=== PATIENT | female | born 1955 | race Caucasian/White ===

== ENCOUNTER 2016-09-15 18:00 | Emergency (ER) | payer OTHER ==
[~2016-09-15] VITALS: Ht 172.7 cm; Wt 181.4 kg
[~2016-09-15 18:00] MED LIST: ALBUTEROL1.25 MG/1 INH/SOL; AMIODARONE HCL200 M1 PO; ATENOLOL25 M1 PO; AUGMENTIN 875-1 EACH PO; CYCLOBENZAPRINE10 M1 PO; DUONEB INH; FEMARA2.5 M1 PO; FUROSEMIDE40 M1 PO; IBUPROFEN800 M1 PO; KETOROLAC TROME10 M1 PO; LISINOPRIL20 M1 PO; MEDROL4 M2 PO; PERCOCET 5-3251 EACH PO; POLYTRIM EYE DR10 ML TOP; PREDNISONE50 M1 PO; SYMBICORT 16010.2 GM INH; SYNTHROID88 MCG PO; ULTRAM50 M1 PO; VENTOLIN HFA18 GM INH; VENTOLIN HFA18 GM PO; XARELTO20 M2 PO
--- NOTE | 2016-09-15 18:54 | ED GENERAL ADULT ---
History of Present Illness General Chief Complaint: General Adult Stated Complaint: SWOLLEN/WEEPING LEGS,SOB Source: patient Exam Limitations: no limitations Vital Signs & Intake/Output Vital Signs & Intake/Output Vital Signs Date Time Temp Pulse Resp B/P B/P Pulse O2 O2 Flow FiO2 Mean Ox Delivery Rate 09/15 2009 98.1 103 22 118/80 95 Room Air 09/15 1814 98.6 128 18 107/69 96 Room Air Allergies Coded Allergies: NO KNOWN ALLERGIES (07/05/13) Triage Note: 60 YO FEMALE TO TRIAGE FOR BILATERAL LOWER EXTREMITITY SWELLING. PT STATES SHE IS ALSO SOB (HX OF ASTHMA). STATES SHE TAKES LASIX DAILY BUT THE SWELLING IN HER LEGS HAVE NOT GONE DOWN. EKG COMPELTED ON ARRIVAL Triage Nurses Notes Reviewed? yes Onset: Gradual Duration: day(s): (FEW) Timing: recent history Injury Environment: home Severity: mild, moderate No Modifying Factors: none Associated Symptoms: cough (SCANT SPUTUM) HPI: 60 year old femael with history of afib on xarelto, s/p chemotherapy for breast cancer (ended 1 year ago) presents with increased swelling inb/l legs, now worse on right. Cough with scant clear sputum. Reports 28 lb weight gain x one month. (DANY MÉNDEZ,TANNER) Reconcile Medications Acetaminophen (Tylenol Extra Strength) 500 MG TABLET 2 TAB PO PRN PAIN ( Reported) Albuterol Sulfate (Proair Hfa) 90 MCG HFA.AER.AD 2 PUF INH AD PRN RESPIRATORY (Reported) Amiodarone HCl 200 MG TABLET 1 TAB PO DAILY DIRECTED (Reported) Atenolol 25 MG TABLET 1 TAB PO DAILY DIRECTED (Reported) Budesonide/Formoterol Fumarate (Symbicort 160-4.5 Mcg Inhaler) 10.2 GM HFA.AER.AD 2 PUF INH BID DIRECTED (Reported) Furosemide 40 MG TABLET 1 TAB PO DAILY DIRECTED (Reported) Letrozole (Femara) 2.5 MG TABLET 1 TAB PO DAILY DIRECTED (Reported) Levothyroxine Sodium (Synthroid) 88 MCG TABLET 1 TAB PO DAILY THYROID ( Reported) Rivaroxaban (Xarelto) 20 MG TABLET 1 TAB PO DAILY DIRECTED (Reported) with food Sertraline HCl 25 MG TABLET 1 TAB PO DAILY MENTAL HEALTH (Reported) (JANET MÉNDEZ,DREW Wise) Past History Travel History Traveled to [place] past 21 day No Medical History Any Pertinent Medical History? 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 No (TANNER MARTINS MD) Review of Systems Review of Systems Constitutional: Reports: see HPI (28 LB WEIGHT GAIN). Denies: chills, fever. EENTM: Reports: no symptoms. Respiratory: Reports: cough, short of breath, sputum production (SCANT CLEAR SPUTUM). Cardiovascular: Reports: peripheral edema. Denies: chest pain. GI: Denies: abdominal pain. Genitourinary: Reports: no symptoms. Musculoskeletal: Reports: no symptoms. Skin: Reports: no symptoms. Neurological/Psychological: Reports: no symptoms. Hematologic/Endocrine: Denies: bruising, bleeding, polyuria, polydipsia. Immunologic/Allergic: Denies: splenectomy. All Other Systems: Reviewed and Negative (DANY MÉNDEZ,TANNER) Physical Exam Physical Exam General Appearance: well developed/nourished, alert, awake, anxious, mild distress, moderate distress, obese Head: atraumatic, normal appearance Eyes: Bilateral: PERRL, EOMI. Ears, Nose, Throat: normal pharynx, hearing grossly normal Neck: normal inspection, supple, full range of motion Respiratory: DIMINISHED BREATH SOUNDS Cardiovascular: irregularly irregular Peripheral Pulses: 2+ radial (R), 2+ radial (L) Gastrointestinal: MORBIDLY OBESE Back: normal inspection, normal range of motion Extremities: swelling (2+ BILATEARLLY R>L) Neurologic/Psych: no motor/sensory deficits, awake, alert, oriented x 3 Skin: RLE EDEMA Core Measures ACS in differential dx? Yes CVA/TIA Diagnosis: No Severe Sepsis Present: No Septic Shock Present: No (TANNER MARTINS MD) Progress Differential Diagnoses I considered the following diagnoses in my evaluation of the patient: [CHF, FLUID OVERLOAD, PNEUMONIA, COPD] Plan of Care: Orders Procedure Date/time Status TROPONIN LEVEL 09/15 1850 Complete PARTIAL THROMBOPLASTIN TIME 09/15 1850 Complete PROTHROMBIN TIME 09/15 1850 Complete COMPREHENSIVE METABOLIC PANEL 09/15 1850 Complete CBC WITHOUT DIFFERENTIAL 09/15 1850 Complete B-TYPE NATRIURETIC PEP (BNP) 09/15 1850 Complete EKG 09/15 1801 Active Laboratory Tests 09/15/161917: Anion Gap 7, Estimated GFR > 60, BUN/Creatinine Ratio 23.8, Glucose 86, Calcium 9.2, Total Bilirubin 0.6, AST 26, ALT 39, Alkaline Phosphatase 62, Troponin I < 0.01, Grn-M-Gvrburwjvmj Pept 1370 H, Total Protein 7.5, Albumin 4.0, Globulin 3.5, Albumin/Globulin Ratio 1.1, PT 12.6 H, INR 1.20 H, APTT 32, CBC w Diff NO MAN DIFF REQ, RBC 5.36, MCV 84.9, MCH 27.4, RDW 17.9 H, MPV 9.1, Gran % 63.1, Lymphocytes % 25.4, Monocytes % 9.2, Eosinophils % 2.1, Basophils % 0.2, Absolute Granulocytes 4.8, Absolute Lymphocytes 1.9, Absolute Monocytes 0.7 H, Absolute Eosinophils 0.2, Absolute Basophils 0, PUBS MCHC 32.3 L Diagnostic Imaging: Viewed by Me: Radiology Read. Discussed w/RAD: Radiology Read. Initial ED EKG: AFIB Prior EKG: unchanged Hand-Off Endorsed To: JANET MÉNDEZ,DREW Wise Endorsed Time: 1915 Pending: labs, Xray (DANY MÉNDEZ,TANNER) CXR Impression: PATIENT: ARE AGUERO PRESENT AGE : 60 PATIENT ACCOUNT NO: [id number] : 55 LOCATION: [facility] ORDERING PHYSICIAN: TANNER MARTINS MD SERVICE DATE: 09/15/16-1850 EXAM TYPE: RAD - XRY -PORTABLE CHEST XRAY EXAMINATION: XR PORTABLE CHEST CLINICAL INFORMATION: Fluid overload COMPARISON: 12/08/2015 TECHNIQUE: Portable frontal view of the chest was obtained. FINDINGS: Right chest wall CT compatible port remains in place. The lungs are well expanded. No consolidation, edema, or effusion. No pneumothorax. The cardiomediastinal silhouette remains prominent. No acute osseous abnormality. IMPRESSION: No acute pulmonary findings. DICTATED BY: SANTOS PETTIT MD DATE/TIME DICTATED:09/15/161926 ATTENDANT [facility]: [facility] DATE/TIME TRANSCRIBED:09/15/161926 CONFIDENTIAL, DO NOT COPY WITHOUT APPROPRIATE AUTHORIZATION. 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 Patient has begun to diurese here in the emergency department with good oxygen saturations on room air. 09/15/2016 9:55:06 PM patient has made a number of trips to the bathroom and appears to be diuresing well. I feel she is stable for outpatient management via Her primary care physician. Plan increase dose of furosemide with potassium supplementation and follow-up with PCP in 48 hours. (JANET MÉNDEZ,DREW Wise) Departure Departure Condition: Stable Referrals: BEST MÉNDEZ,FELTON Rodriguez (PCP/Family) Departure Forms: Customer Survey General Discharge Information (DANY MÉNDEZ,TANNER) Departure Disposition: HOME OR SELF CARE Clinical Impression Primary Impression: Fluid overload Qualifiers: Hypervolemia type: other Qualified Code: E87.79 - Other fluid overload Secondary Impressions: Peripheral edema Additional Instructions: double your dose of furosemide over the next 48 hours. Elevate your legs as much as possible and consider compression stockings. Follow-up with your primary care physician in 48 hours to recheck her potassium level and kidney functions. If you're capable please weigh herself daily and record this for your doctor. Low-salt diet. Return if any concerns or sudden worsening. Please note that there might be incidental findings in your evaluation that are unrelated to the current emergency department visit. Please notify your primary care doctor about this emergency department visit in order to obtain and review all of the testing performed so that these incidental findings can be monitored as needed. If you had an x-ray performed, please understand that some fractures may not be seen on the initial set of x-rays. If your symptoms persist you might need a repeat set of x-rays to check for such a fracture. If you had a laceration evaluated, please understand that foreign bodies such as glass or wood may not be visible to the naked eye or on plain x-rays. If the wound becomes red, swollen, increasingly more painful or if there is any drainage from the wound, please have it reevaluated by a physician for the possibility of a retained foreign body. Thank you for choosing the [facility] Emergency Department for your care. It was a pleasure to serve you today. Drew Akins M.D. [facility] Prescriptions: Current Visit Scripts Potassium Chloride (K-Tab ER) 2 TAB PO DAILY #4 TAB (JANET MÉNDEZ,DREW Wise) Critical Care Note Critical Care Note Critical Care Time: non-applicable (DANY MÉNDEZ,TANNER)
[2016-09-15 19:25] LABS: ABSOLUTE BASOPHIL COUNT 0 /CUMM (0.0-0.2); ABSOLUTE EOSINOPHIL COUNT 0.2 /CUMM (0.0-0.7); ABSOLUTE GRANULOCYTE CT 4.8 /CUMM (1.4-6.5); ABSOLUTE LYMPH COUNT 1.9 /CUMM (1.2-3.4); ABSOLUTE MONOCYTE COUNT 0.7 /CUMM (0.10-0.60); BASOPHIL % 0.2 % (0.0-2.0); EOSINOPHIL % 2.1 % (0-5); GRANULOCYTE % 63.1 % (42.2-75.2); HEMATOCRIT 45.5 % (37-47); MEAN CORPUSCULAR HGB 27.4 PG (27.0-31.0); MEAN CORPUSCULAR HGB CONC 32.3 G/DL (33.0-37.0); MEAN CORPUSCULAR VOLUME 84.9 FL (81.0-99.0); MEAN PLATELET VOLUME 9.1 FL (7.4-10.4); PLATELET COUNT 192 /CUMM (130-400); RBC DISTRIBUTION WIDTH 17.9 % (11.5-14.5); RED BLOOD CELL CT 5.36 /CUMM (4.20-5.40); WHITE BLOOD CELL COUNT 7.6 /CUMM (4.8-10.8)
--- NOTE | 2016-09-15 19:31 | RADIOLOGY REPORT ---
EXAMINATION: XR PORTABLE CHEST CLINICAL INFORMATION: Fluid overload COMPARISON: 12/08/2015 TECHNIQUE: Portable frontal view of the chest was obtained. FINDINGS: Right chest wall CT compatible port remains in place. The lungs are well expanded. No consolidation, edema, or effusion. No pneumothorax. The cardiomediastinal silhouette remains prominent. No acute osseous abnormality. IMPRESSION: No acute pulmonary findings.
[2016-09-15 19:52] LABS: PT 12.6 SEC (9.4-12.5); PTT 32 SEC (25-37)
[2016-09-15] MEDS ORDERED: SERTRALINE HCL25 MG PO (20:19)
[2016-09-15] MEDS ORDERED: PROAIR HFA8.5 GM INH (20:19)
[2016-09-15] MEDS ORDERED: TYLENOL EXTRA500 M2 PO (20:20)
[2016-09-15] MEDS ORDERED: K-TAB ER10 MEQ PO (21:58)
[2016-09-15 22:06] VITALS: BP 136/63
== END 2016-09-15 22:18 ==
LOC: ERH 18:00
PROVIDERS: Emergency Medicine
DX: E87.70 Fluid overload, unspecified (principal); R60.0 Localized edema
CPT/HCPCS: 93005; 93010; 96374; J1940

== ENCOUNTER 2016-11-22 11:55 | Emergency (ER) | payer OTHER ==
[~2016-11-22] VITALS: Ht 172.7 cm; Wt 181.4 kg
[~2016-11-22 11:55] MED LIST changes: +K-TAB ER10 MEQ PO; +PROAIR HFA8.5 GM INH; +SERTRALINE HCL25 MG PO; +TYLENOL EXTRA500 M2 PO
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
[2016-11-22 13:39] LABS: ABSOLUTE BASOPHIL COUNT 0 /CUMM (0.0-0.2); ABSOLUTE EOSINOPHIL COUNT 0.1 /CUMM (0.0-0.7); ABSOLUTE GRANULOCYTE CT 6.1 /CUMM (1.4-6.5); ABSOLUTE LYMPH COUNT 1.6 /CUMM (1.2-3.4); ABSOLUTE MONOCYTE COUNT 0.7 /CUMM (0.10-0.60); BASOPHIL % 0.2 % (0.0-2.0); EOSINOPHIL % 1.7 % (0-5); GRANULOCYTE % 71.9 % (42.2-75.2); HEMATOCRIT 44.5 % (37-47); MEAN CORPUSCULAR HGB CONC 32.3 G/DL (33.0-37.0); MEAN CORPUSCULAR VOLUME 86.4 FL (81.0-99.0); PLATELET COUNT 186 /CUMM (130-400); RBC DISTRIBUTION WIDTH 18.3 % (11.5-14.5); RED BLOOD CELL CT 5.14 /CUMM (4.20-5.40); WHITE BLOOD CELL COUNT 8.5 /CUMM (4.8-10.8)
[2016-11-22 14:31] VITALS: BP 118/78
--- NOTE | 2016-11-22 14:38 | CT SCAN REPORT ---
EXAMINATION: CT HEAD WITHOUT CONTRAST CLINICAL INFORMATION: Rule out bleed, status post head strike. Patient on Eliquis. COMPARISON: A prior head CT from 02/24/2010 is off-line and unavailable for review. TECHNIQUE: Contiguous axial imaging was performed from the skull base to vertex without intravenous administration of contrast. The study is limited due to beam hardening artifacts. DLP: 380 mGy-cm FINDINGS: There is no evidence of acute intracranial hemorrhage or territorial infarction. No abnormal mass effect or midline shift is seen. Cook to white matter differentiation is well preserved. No extra-axial fluid collections are identified. The ventricles are normal in size. There is no abnormal attenuation within the brain parenchyma. The osseous structures are normal. The mastoid air cells are well aerated. Small subcutaneous nodules with speckled calcification in the scalp near the vertex are most indicative for benign pilomatricomas. There is moderate mucosal thickening with fluid levels in the maxillary sinuses. There is a 1.5 cm retention cyst versus polyp in the right frontal sinus. There is partial mucosal opacification of the right ethmoid air cells anteriorly. A small retention cyst is noted along the floor of the right sphenoid sinus. IMPRESSION: Limited study with motion and beam hardening artifacts. Otherwise, no acute intracranial pathology. Moderate fluid levels and mucosal thickening partially visualized in the maxillary sinuses. Additional moderate mucosal thickening in the anterior right frontoethmoid sinuses.
--- NOTE | 2016-11-22 14:57 | RADIOLOGY REPORT ---
EXAMINATION: XR PORTABLE CHEST CLINICAL INFORMATION: Syncope. Evaluate for COPD exacerbation. Fall. Possible loss of consciousness. COMPARISON: Several prior chest x-rays, most recent of which is dated 09/15/2016. TECHNIQUE: Portable AP semierect view of the chest was obtained. FINDINGS: Right jugular Port-A-Cath extends into the deep SVC. Cardiac mediastinal silhouette is enlarged, unchanged. Low lung volumes are seen with accentuation of the central lung markings. No focal consolidation, effusion, pulmonary edema or pneumothorax is seen. Bony structures grossly unremarkable. IMPRESSION: 1. No change in positioning of right jugular Port-A-Cath. 2. Low lung volumes without focal pulmonary process seen.
--- NOTE | 2016-11-22 15:13 | RADIOLOGY REPORT ---
EXAMINATION: XR SHOULDER, LEFT CLINICAL INFORMATION: Left shoulder pain. Rule out fracture. Status post fall. COMPARISON: Chest x-ray 09/15/2016 TECHNIQUE: AP external rotation, Grashey, scapular Y, and axillary views of the left shoulder. FINDINGS: The films are underpenetrated. There is mild degenerative arthrosis of the left acromioclavicular joint. No fracture or dislocation seen. The visualized left lung and ribs are normal. IMPRESSION: No acute osseous abnormality of the left shoulder. Mild degenerative arthrosis of the left acromioclavicular joint.
--- NOTE | 2016-11-22 17:04 | RADIOLOGY REPORT ---
EXAMINATION: XR TOES, LEFT CLINICAL INFORMATION: Pain and ecchymosis after fall. COMPARISON: None TECHNIQUE: 3 views of the left toes were obtained. FINDINGS: There are nondisplaced fractures through the bases of the fourth and fifth proximal phalanges. No obvious intra-articular extension is visible. No additional fractures are clearly seen. There is significant soft tissue swelling of the foot, particularly along the dorsum of foot. There may be a nondisplaced fracture through the head of the fourth metatarsal bone as well. Calcaneal osseous spurring is noted. IMPRESSION: Fractures through the bases of the fourth and fifth proximal phalanges. Questionable subtle, nondisplaced fracture through the head of the fourth metatarsal bone. Significant soft tissue swelling of the foot.
[2016-11-22] MEDS ORDERED: SPIRIVA18 MCG INH (17:11)
[2016-11-22] MEDS ORDERED: AMOXICILLIN875 M1 PO (17:36)
[2016-11-22] MEDS ORDERED: BACTRIM DS TAB1 EACH PO (17:36)
[2016-11-22] MEDS ORDERED: PERCOCET 5-3251 EACH PO (17:36)
== END 2016-11-22 18:25 ==
LOC: ERH 11:55
PROVIDERS: Physician Assistant
DX: S92.511B Displaced fracture of proximal phalanx of right lesser toe(s), initial encounter for open fracture (principal); S91.115A Laceration without foreign body of left lesser toe(s) without damage to nail, initial encounter; R60.9 Edema, unspecified; V48.4XXA Person boarding or alighting a car injured in noncollision transport accident, initial encounter; Y92.9 Unspecified place or not applicable; Y93.9 Activity, unspecified
CPT/HCPCS: 73030-LT; 73660-LT; 90471; 90714; 93005; 93010

== ENCOUNTER 2017-05-31 16:35 | Inpatient (IN) | payer OTHER ==
[~2017-05-31] VITALS: Ht 172.7 cm; Wt 181.4 kg
[~2017-05-31 16:35] MED LIST changes: +AMOXICILLIN875 M1 PO; +BACTRIM DS TAB1 EACH PO; +SPIRIVA18 MCG INH
--- NOTE | 2017-05-31 17:15 | ED INFLUENZA/URI COMPLAINT ---
History of Present Illness General Chief Complaint: Wheezing/Asthma Stated Complaint: "I CANT BREATH" Source: patient, old records Exam Limitations: no limitations Vital Signs & Intake/Output Vital Signs & Intake/Output Vital Signs Date Time Temp Pulse Resp B/P B/P Pulse O2 O2 Flow FiO2 Mean Ox Delivery Rate 05/31 2216 98.4 92 18 121/65 93 Nasal 2.0L Cannula 05/31 1807 97 Nasal 2.0L Cannula 05/31 180 99.7 96 22 119/74 97 Nasal 2.0L Cannula 05/31 1734 92 05/31 1721 95 Nasal 2.0L Cannula 05/31 1644 98.2 92 18 131/85 93 Room Air Allergies Coded Allergies: NO KNOWN ALLERGIES (07/05/13) Reconcile Medications Acetaminophen (Tylenol Extra Strength) 500 MG TABLET 2 TAB PO PRN PAIN ( Reported) Albuterol Sulfate (Proair Hfa) 90 MCG HFA.AER.AD 2 PUF INH AD PRN RESPIRATORY (Reported) Amiodarone (Cordarone) 200 MG TABLET 1 TAB PO DAILY HEART (Reported) Amoxicillin 875 MG TABLET 1 TAB PO BID open fracture Atenolol 25 MG TABLET 1 TAB PO DAILY BP (Reported) Budesonide/Formoterol Fumarate (Symbicort 160-4.5 Mcg Inhaler) 10.2 GM HFA.AER.AD 2 PUF INH BID COPD (Reported) Furosemide 40 MG TABLET 1 TAB PO DAILY DIURETIC (Reported) Letrozole (Femara) 2.5 MG TABLET 1 TAB PO DAILY CANCER (Reported) Levothyroxine Sodium (Synthroid) 88 MCG TABLET 1 TAB PO DAILY THYROID ( Reported) Oxycodone HCl/Acetaminophen (Percocet 5-325 MG Tablet) 5 MG-325 MG TABLET 1 TAB PO TID PRN pain Rivaroxaban (Xarelto) 20 MG TABLET 1 TAB PO DAILY BLOOD THINNER (Reported) with food Sertraline HCl 25 MG TABLET 1 TAB PO DAILY MENTAL HEALTH (Reported) Sulfamethoxazole/Trimethoprim (Bactrim Ds Tablet) 800 MG-160 MG TABLET 1 TAB PO BID open fracture Tiotropium [place] (Spiriva) 18 MCG CAP.W.DEV 1 CAP INH DAILY COPD (Reported) Triage Note: PT FROM HOME C/O SOB X "I DONT KNOW A FEW WEEKS I GUESS" PT STATES THAT FOR A FEW WEEKS PT HAS HAD DIFFICULTY BREATHING, SOB UPON EXERTION. PT IS OBESE AND STATES HER PCP COULD NOT SEE HER, SHE WENT TO A WALK IN " BUT THEY COULDNT DO ANYTHING" PT STATES COUGH X FEW WEEKS WITH SPUTUM THAT IS YELLOW/WHITE. PTS 02 SAT 93% ON RA. PT THEN BEGAN TO SAY "I HAVE A KELLEY, MY BACK HURT, MY MOUTH IS DRY". Triage Nurses Notes Reviewed? yes Onset: Gradual Duration: getting worse Timing: recent history Severity: severe Severity Numbers: 7 HPI: Patient is a 61-year-old female with a past medical history of COPD not on home O2, hypertension, hypothyroidism, morbid obesity, lung cancer in remission currently on hormonal therapy, peripheral lower extremity leg edema currently on Lasix who presents emergency room with a one-day history of shortness of breath cough weakness fatigue body aches back pain headache Patient tried multiple breathing treatments prior to arrival with minimal relief of symptoms was evaluated at urgent care facility and was advised to present to emergency room, nursing staff in triage does note the patient is hypoxic and dyspneic Patient denies any chest pain arm pain jaw pain nausea vomiting It is noted last echocardiogram PER Old records 2013 ejection fracture over 65 (Ezequiel Beckwith) Past History Travel History Traveled to [place] past 21 day No Medical History Any Pertinent Medical History? see below for history Neurological: NONE EENT: NONE Cardiovascular: AFIB, hypertension Respiratory: asthma, COPD Gastrointestinal: NONE Hepatic: NONE Renal: NONE Musculoskeletal: NONE Psychiatric: NONE Endocrine: THYROID Blood Disorders: NONE Cancer(s): breast cancer [employer]/Reproductive: NONE Tetanus Vaccine: 11/22/16 Surgical History Surgical History: non-contributory, N Psychosocial History Who do you live with Family Services at Home None What is your primary language Armenian Tobacco Use: Current Daily Use Daily Tobacco Use Amount/Type: => 5 Cigarettes daily Family History Family History, If Any: BROTHER Atrial fibrillation Stroke FATHER Heart attack Hx Contributory? No (Ezequiel Beckwith) Review of Systems Review of Systems Constitutional: Reports: see HPI, chills, fever. EENTM: Reports: no symptoms. Respiratory: Reports: see HPI, cough, short of breath. Cardiovascular: Reports: see HPI, peripheral edema. GI: Reports: no symptoms. Genitourinary: Reports: no symptoms. Musculoskeletal: Reports: see HPI, joint pain, muscle pain. Skin: Reports: no symptoms. Neurological/Psychological: Reports: see HPI, headache. Hematologic/Endocrine: Reports: no symptoms. Immunologic/Allergic: Reports: no symptoms. All Other Systems: Reviewed and Negative (Ezequiel Beckwith) Physical Exam Physical Exam General Appearance: no apparent distress, obese Head: atraumatic Eyes: Bilateral: normal appearance. Ears, Nose, Throat: normal ENT inspection, moist mucous membrane Neck: normal inspection Respiratory: wheezing, respiratory distress Cardiovascular: tachycardia, irregularly irregular Peripheral Pulses: 2+ radial (R) Gastrointestinal: normal bowel sounds Extremities: pedal edema Neurologic/Psych: awake, alert Skin: warm/dry Core Measures Sepsis Present: No Sepsis Focused Exam Completed? No (Ezequiel Beckwith) Progress Differential Diagnosis: influenza, meningitis, neutropenia, otitis, pneumonia, pharyngitis, sinusitis Plan of Care: Orders Procedure Date/time Status Heart Healthy Diet 06/01 B Active Patient Data 05/31 2137 Active ED Holding Orders 05/31 2135 Active Admit to inpatient 05/31 2135 Active Vital Signs 05/31 2135 Active Code Status 05/31 2135 Active LACTIC ACID 05/31 2020 Complete CTA CHEST-PULMONARY EMBOLISM 05/31 1911 Active ARTERIAL BLOOD GAS (GEN) 05/31 172 Active RAPID VIRAL INFLUENZA A 05/31 172 Complete LOWER RESPIRATORY CULTURE 05/31 172 Active BLOOD CULTURE 05/31 172 Active TROPONIN LEVEL 05/31 172 Complete LACTIC ACID 05/31 172 Complete COMPREHENSIVE METABOLIC PANEL 05/31 1721 Complete CBC WITHOUT DIFFERENTIAL 05/31 172 Complete B-TYPE NATRIURETIC PEP (BNP) 05/31 172 Complete EKG 05/31 172 Active Laboratory Tests 05/31/17 202: Lactic Acid 1.0 05/31/17 1750: Anion Gap 12, Estimated GFR > 60, BUN/Creatinine Ratio 20.0, Glucose 94, Lactic Acid 1.3, Calcium 9.0, Total Bilirubin 0.6, AST 21, ALT 29, Alkaline Phosphatase 58, Troponin I < 0.01, Aiq-C-Awqldxbdoqq Pept 2480 H, Total Protein 6.8, Albumin 3.8, Globulin 3.0, Albumin/Globulin Ratio 1.3, CBC w Diff NO MAN DIFF REQ, RBC 4.82, MCV 86.2, MCH 28.4, MCHC 33.0, RDW 17.8 H, MPV 9.1, Gran % 76.4 H, Lymphocytes % 13.4 L, Monocytes % 9.6 H, Eosinophils % 0.2, Basophils % 0.4 , Absolute Granulocytes 6.3, Absolute Lymphocytes 1.1 L, Absolute Monocytes 0.8 H, Absolute Eosinophils 0, Absolute Basophils 0 Microbiology 05/31 1911 BLOOD: Blood Culture - RECD 05/31 1899 BLOOD: Blood Culture - RECD 05/31 175 NASOPHARYN: Influenza Virus A & B Rapid Smear - COMP 05/31 172 LOWER RESP: Respiratory Culture - ORD 05/31 1720 LOWER RESP: Gram Stain - ORD Differential diagnoses include CHF PE NC Patient was given nebulizer treatments and steroids for concerns of COPD exacerbation and azithromycin for concerns of bronchitis Due to patient's history of cancer or tachycardia and shortness of breath that pulmonary embolism will be ruled out with CT angiogram, Patient was physically unable to fit in the CT scan for evaluation patient also has severe anxiety and distress There is consideration of CHF due to elevated BNP leg edema and shortness of breath she will be admitted to telemetry Upon admission patient looks well no apparent distress Diagnostic Imaging: Viewed by Me: Radiology Read. CXR Impression: no acute abnormality Initial ED EK BPM, MULTIPLE ARTIFACT Comments: PATIENT: RAE AGUERO PRESENT AGE: 61 PATIENT ACCOUNT NO: [id number] : 55 LOCATION: [facility] ORDERING PHYSICIAN: Drew Hyde DO SERVICE DATE: 05/31/17 EXAM TYPE: RAD - XRY-PORTABLE CHEST XRAY EXAMINATION: XR PORTABLE CHEST CLINICAL INFORMATION: Cough COMPARISON: Multiple previous chest x-rays with the most recent chest x-ray of 11/22/2016. TECHNIQUE: Portable frontal view of the chest was obtained. FINDINGS: Somewhat limited evaluation by technique and patient's body habitus. A right-sided CT compatible Port-A-Cath is in place with the tip terminating over the expected location of the superior cavoatrial junction. No evidence of pneumothorax. The lungs are mildly hypoexpanded. No definite evidence of focal consolidation. No pulmonary edema or significant pleural effusions. The cardiomediastinal silhouette is unchanged. A square radiopaque density projecting over the lower thoracic spine in the midline is likely artifactual. Recommend clinical correlation. IMPRESSION: No convincing radiographic evidence of pneumonia. No acute pulmonary process. DICTATED BY: Oma Cruz MD DATE/TIME DICTATED:05/31/171802 SCHOOL SECRETARY:DEYSI DATE/TIME TRANSCRIBED:05/31/171802 CONFIDENTIAL, DO NOT COPY WITHOUT APPROPRIATE AUTHORIZATION. (Ezequiel Beckwith) Departure Departure Disposition: STILL A PATIENT Condition: Stable Clinical Impression Primary Impression: CHF (congestive heart failure) Secondary Impressions: Bronchitis, COPD exacerbation Referrals: Grimes Mason MÉNDEZ (PCP/Family) Departure Forms: Customer Survey General Discharge Information Admission Note Spoke With: Harmony Esparza MD Documentation of Exam: Documentation of any treatments & extenuating circumstances including Concerns Regarding Discharge (functional status, medication knowledge or non-compliance, living conditions, etc.) that warrant an admission rather than observation: [ Patient requires telemetry admission for concerns of CHF patient requires IV steroids, nebulizer treatments, pulmonary consultation cardiology consultation repeat labs repeat cardiac enzymes repeat EKG echocardiogram] (Ezequiel Beckwith) PA/WEED CONTROLLER Co-Sign Statement Statement: ED Attending supervision documentation- [X] I saw and evaluated the patient. I have also reviewed all the pertinent lab results and diagnostic results. I agree with the findings and the plan of care as documented in the PA's/WEED CONTROLLER's documentation. [X] I have reviewed the ED Record and agree with the PA's/WEED CONTROLLER's documentation. [] Additions or exceptions (if any) to the PAs/WEED CONTROLLER's note and plan are summarized below: [Patient to be admitted to telemetry for dyspnea. COPD exacerbation. Nebulizers, IV steroids, IV antibiotics, pulmonary consultation] (Evelio MÉNDEZ,Juan Up) [X] I have reviewed the ED Record and agree with the PA's/WEED CONTROLLER's documentation. [] Additions or exceptions (if any) to the PAs/WEED CONTROLLER's note and plan are summarized below: [Patient to be admitted to telemetry for dyspnea. COPD exacerbation. Nebulizers, IV steroids, IV antibiotics, pulmonary consultation] (Juan Fraser MD)
[2017-05-31 18:03] LABS: ABSOLUTE BASOPHIL COUNT 0 /CUMM (0.0-0.2); ABSOLUTE EOSINOPHIL COUNT 0 /CUMM (0.0-0.7); ABSOLUTE GRANULOCYTE CT 6.3 /CUMM (1.4-6.5); ABSOLUTE LYMPH COUNT 1.1 /CUMM (1.2-3.4); ABSOLUTE MONOCYTE COUNT 0.8 /CUMM (0.10-0.60); BASOPHIL % 0.4 % (0.0-2.0); EOSINOPHIL % 0.2 % (0-5); GRANULOCYTE % 76.4 % (42.2-75.2); HEMATOCRIT 41.6 % (37-47); MEAN CORPUSCULAR HGB 28.4 PG (27.0-31.0); MEAN CORPUSCULAR VOLUME 86.2 FL (81.0-99.0); MEAN PLATELET VOLUME 9.1 FL (7.4-10.4); PLATELET COUNT 186 /CUMM (130-400); RBC DISTRIBUTION WIDTH 17.8 % (11.5-14.5); RED BLOOD CELL CT 4.82 /CUMM (4.20-5.40); WHITE BLOOD CELL COUNT 8.3 /CUMM (4.8-10.8)
--- NOTE | 2017-05-31 18:08 | RADIOLOGY REPORT ---
EXAMINATION: XR PORTABLE CHEST CLINICAL INFORMATION: Cough COMPARISON: Multiple previous chest x-rays with the most recent chest x-ray of 11/22/2016. TECHNIQUE: Portable frontal view of the chest was obtained. FINDINGS: Somewhat limited evaluation by technique and patient's body habitus. A right-sided CT compatible Port-A-Cath is in place with the tip terminating over the expected location of the superior cavoatrial junction. No evidence of pneumothorax. The lungs are mildly hypoexpanded. No definite evidence of focal consolidation. No pulmonary edema or significant pleural effusions. The cardiomediastinal silhouette is unchanged. A square radiopaque density projecting over the lower thoracic spine in the midline is likely artifactual. Recommend clinical correlation. IMPRESSION: No convincing radiographic evidence of pneumonia. No acute pulmonary process.
--- NOTE | 2017-05-31 22:35 | History & Physical ---
Juan Avalos MD 05/31/17 1294: General Information and HPI MD Statement: I have seen and personally examined RAE TRUJILLO and documented this H&P. The patient is a 61 year old F who presented with a patient stated chief complaint of [cough, SOB]. Source of Information: patient, old records Exam Limitations: no limitations History of Present Illness: Patient is a 61-year-old morbidly obese female with a PMH significant for COPD, HTN, hypothyroidism, breast cancer being treated with letrozole, A. fib on Xarelto who presents complaining of cough, shortness of breath, weakness. Patient states that for the past 3 weeks she has had a nonproductive cough and worsening shortness of breath. During this time she is also had fever and chills. She states that for the past day she has been so weak and short of breath she could not get out of bed. She has had increased leg swelling from baseline, she is on Lasix currently. She was evaluated by an urgent care who gave her breathing treatment recommended that she come to the ED. She has one sick contact her at home was sick with URI symptoms recently. She denies any chest pain, palpitations, nausea, vomiting, dizziness, lightheadedness. Allergies/Medications Allergies: Coded Allergies: NO KNOWN ALLERGIES (07/05/13) Home Med list Acetaminophen (Tylenol Extra Strength) 500 MG TABLET 2 TAB PO PRN PAIN ( Reported) Albuterol Sulfate (Proair Hfa) 90 MCG HFA.AER.AD 2 PUF INH AD PRN RESPIRATORY (Reported) Amiodarone (Cordarone) 200 MG TABLET 1 TAB PO DAILY HEART (Reported) Amoxicillin 875 MG TABLET 1 TAB PO BID open fracture Atenolol 25 MG TABLET 1 TAB PO DAILY BP (Reported) Budesonide/Formoterol Fumarate (Symbicort 160-4.5 Mcg Inhaler) 10.2 GM HFA.AER.AD 2 PUF INH BID COPD (Reported) Furosemide 40 MG TABLET 1 TAB PO DAILY DIURETIC (Reported) Letrozole (Femara) 2.5 MG TABLET 1 TAB PO DAILY CANCER (Reported) Levothyroxine Sodium (Synthroid) 88 MCG TABLET 1 TAB PO DAILY THYROID ( Reported) Oxycodone HCl/Acetaminophen (Percocet 5-325 MG Tablet) 5 MG-325 MG TABLET 1 TAB PO TID PRN pain Rivaroxaban (Xarelto) 20 MG TABLET 1 TAB PO DAILY BLOOD THINNER (Reported) with food Sertraline HCl 25 MG TABLET 1 TAB PO DAILY MENTAL HEALTH (Reported) Sulfamethoxazole/Trimethoprim (Bactrim Ds Tablet) 800 MG-160 MG TABLET 1 TAB PO BID open fracture Tiotropium [place] (Spiriva) 18 MCG CAP.W.DEV 1 CAP INH DAILY COPD (Reported) Past History Travel History Traveled to [place] past 21 day No Medical History Neurological: NONE EENT: NONE Cardiovascular: AFIB, hypertension Respiratory: asthma, COPD Gastrointestinal: NONE Hepatic: NONE Renal: NONE Musculoskeletal: NONE Psychiatric: NONE Endocrine: THYROID Blood Disorders: NONE Cancer(s): 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 spouse, child Services at Home: None Primary Language: Yakut Smoking Status: Current Everyday Smoker (30+ pack year hx) ETOH Use: denies use Illicit Drug Use: denies illicit drug use Review of Systems Review of Systems Constitutional: Reports: chills, fever, malaise, weakness. Denies: diaphoresis, unexplained weight loss. EENTM: Reports: nasal congestion. Denies: blurred vision, double vision, visual changes, nasal pain. Cardiovascular: Reports: orthopena (chronic), peripheral edema. Denies: chest pain, palpitations, syncope. Respiratory: Reports: cough, short of breath, wheezing. Denies: sputum production. GI: Denies: abdominal pain, diarrhea, melena, nausea, bloody stool, vomiting. Genitourinary: Reports: no symptoms. Musculoskeletal: Reports: no symptoms. Skin: Reports: no symptoms. Neurological/Psychological: Reports: no symptoms. Exam & Diagnostic Data Last 24 Hrs of Vital Signs/I&O Vital Signs Date Time Temp Pulse Resp B/P B/P Pulse O2 O2 Flow FiO2 Mean Ox Delivery Rate 05/31 2217 98.4 92 18 121/65 93 Nasal 2.0L Cannula 05/31 1807 97 Nasal 2.0L Cannula 05/31 180 99.7 96 22 119/74 97 Nasal 2.0L Cannula 05/31 1734 92 05/31 1721 95 Nasal 2.0L Cannula 05/31 1644 98.2 92 18 131/85 93 Room Air Intake & Output 06/01 0800 06/01 0000 05/31 1600 Intake Total 0 Output Total 0 Balance 0 Intake, Oral 0 Output, Urine 0 Patient 420 lb Weight Weight Standing Scale Measurement Method Physical Exam General Appearance Alert, Oriented X3, Cooperative, No Acute Distress Skin Temp/Moisture Exam: Warm/Dry HEENT Atraumatic, PERRLA, EOMI, dry mucous membranes Neck Supple, No JVD, No thryomegaly, +2 Carotid Pulse wo Bruit Cardiovascular Normal S1, Normal S2, irregularly irregular rhythm, tachycardic, HR 100s Lungs diminished breath sounds, diffuse rhonchi, scant wheezing Abdomen Soft, No Tenderness, obese Neurological Normal Speech, Strength at 5/5 X4 Ext, Normal Tone, Sensation Intact, Cranial Nerves 3-12 NL Extremities No Clubbing, No Cyanosis, 2-3+ pitting edema of the LEs, R>L Vascular Pulses Symmetrical Sepsis Peripheral Pulse Location: Radial Sepsis Peripheral Pulse Exam: Normal Sepsis Cap Refill Exam: <2 Sec Last 24 Hrs of Labs/Sukumar: Laboratory Tests 06/01/17 0251: Troponin I < 0.01 05/31/172020: Lactic Acid 1.0 05/31/171749: Anion Gap 12, Estimated GFR > 60, BUN/Creatinine Ratio 20.0, Glucose 94, Lactic Acid 1.3, Calcium 9.0, Total Bilirubin 0.6, AST 21, ALT 29, Alkaline Phosphatase 58, Troponin I < 0.01, Nio-H-Yslufnoyjqy Pept 2480 H, Total Protein 6.8, Albumin 3.8, Globulin 3.0, Albumin/Globulin Ratio 1.3, CBC w Diff NO MAN DIFF REQ, RBC 4.82, MCV 86.2, MCH 28.4, MCHC 33.0, RDW 17.8 H, MPV 9.1, Gran % 76.4 H, Lymphocytes % 13.4 L, Monocytes % 9.6 H, Eosinophils % 0.2, Basophils % 0.4 , Absolute Granulocytes 6.3, Absolute Lymphocytes 1.1 L, Absolute Monocytes 0.8 H, Absolute Eosinophils 0, Absolute Basophils 0 Microbiology 05/31 1911 BLOOD: Blood Culture - RECD 05/31 1899 BLOOD: Blood Culture - RECD 05/31 1757 NASOPHARYN: Influenza Virus A & B Rapid Smear - COMP 05/31 172 LOWER RESP: Respiratory Culture - ORD 05/31 172 LOWER RESP: Gram Stain - ORD Diagnostic Data EKG Results A fib, HR 130, QTc 492 CXR Results No convincing radiographic evidence of pneumonia. No acute pulmonary process. Assessment/Plan Assessment: Patient is a 61-year-old morbidly obese female with a PMH significant for COPD not on home O2, HTN, hypothyroidism, breast cancer being treated with letrozole, A. fib on Xarelto who presents complaining of cough, shortness of breath, weakness and worsening leg swelling. CXR is unremarkable, proBNP is elevated above baseline ,she has scant wheezing on exam and although her d-dimer is elevated she is on chronic anticoagulation for her A. fib. VS on admission: T 98.2, pulse 92, RR 18, BP 131/85, pulse ox 93% on 2 L nasal cannula Labs on admission: ProBNP 2480 (elevated from baseline), troponin negative 2 On the ED patient received IV Lasix, IV steroids, breathing treatment and states this improved her shortness of breath. She was put on 2 L O2 nasal cannula. Problem list #COPD exacerbation #Possible CHF exacerbation #History of A. fib, breast cancer, hypothyroidism, hypertension Plan -Admit to telemetry -Continuous telemetry monitoring -We will DC his troponin EKG -IV Solu-Medrol 40 mg twice a day, Lasix IV 20 mg daily, Mucinex, azithromycin -TRC/nebs -Echocardiogram - Cardiology consult with patient's small piece cutter, Dr. Sabino beckwith -Pulmonology consult in the a.m. -Weaning off O2 as tolerated -Patient's oncologist Dr. Lionel Harrison has been made aware of this admission -continue home medications: xarelto, letrozole, atenolol, amiodarone, levothyroxine -Heart healthy diet -DVT prophylaxis: Xarelto and ALPS -CODE STATUS: Full code As Ranked By This Provider Problem List: 1. CHF (congestive heart failure) 2. COPD exacerbation Core Measures/Misc (01/10) Acute Coronary Syndrome ACS Diagnosis: No Congestive Heart Failure Congestive Heart Failure Diagnosis Yes Last Known EF % 65 Cerebrovascular Accident CVA/TIA Diagnosis: No VTE (View Protocol) VTE Risk Factors Smoker No Mechanical VTE Prophylaxis d/t N/A MechProphylax Ordered No VTE Pharm Prophylaxis d/t NA PharmProphylax ordered Sepsis (View protocol) Sepsis Present: No Ajay Lake MD 06/01/17 0648: Resident Review Statement Resident Statement: examined this patient, discussed with internet network specialist Other Findings: H Ms Trujillo is a 61 year old femal with past medical history of hypertension, COPD, hypothyroidism, breast cancer, atrial fibrillation (on Xarelto), who presented to the emergency department of weakness, shortness breath, cough. Patient states that she has developed a cough which is nonproductive in nature. Prior to coming in the patient stated that she was to the emergency care where after breathing treatment was recommended that she should come to the emergency department. Patient states she was recently exposed to was sick with symptoms of a URI prior to coming in. Also endorses backache likely chronic in nature. R Review of systems patient denies any fever, chills, nausea, vomiting. She denies any chest pain or chest discomfort. She denies any dysuria frequency hematuria or discharge. Patient endorses occasional palpitations and increased leg swelling. E Family present at bedside. General Appearance Alert, Oriented X3, Cooperative, No Acute Distress Skin Temp/Moisture Exam: Warm/Dry HEENT Atraumatic, PERRLA, EOMI, dry mucous membranes Neck Supple, No JVD, No thryomegaly, +2 Carotid Pulse wo Bruit Cardiovascular Normal S1, Normal S2, irregularly irregular rhythm, tachycardic, Lungs diminished breath sounds, diffuse rhonchi, scant wheezing Abdomen Soft, No Tenderness, obese Neurological Normal Speech, Strength at 5/5 X4 Ext, Normal Tone, Sensation Intact, Cranial Nerves 3-12 NL Extremities No Clubbing, No Cyanosis, 3+ pitting edema of the LEs, R>L L WBC 8.3. H&H 13.7 41.6. Platelets 186. ProBNP 2480. Sodium 144. Potassium 4.5. BUN 16. Creatinine 0.8. I SERVICE DATE: 05/31/17 EXAM TYPE: RAD - XRY-PORTABLE CHEST XRAY IMPRESSION: No convincing radiographic evidence of pneumonia. No acute pulmonary process. EKG: A fib, HR 130, QTc 492 A/P Ms Trujillo is a 61 year old femal with past medical history of hypertension, COPD, hypothyroidism, breast cancer, atrial fibrillation (on Xarelto), who presented to the emergency department of weakness, shortness breath, cough. Her shortness of breath likely been caused by COPD exacerbation. #COPD exacerbation, likely due to recent URI #Questionable CHF exacerbation #History of hypothyroidism #History of atrial fibrillation #History of hypertension Admit to telemetry service. Continue IV Solu-Medrol 40 mg twice day. Lasix 20 mg daily. Continue Azithromycin TRC Nebs Monitor ins and outs. Monitor daily weights. Monitor troponins and EKG. Will inform oncologist Dr Harrison Consult Cardiology in Am. Consult Pulmonology in AM. Continue Home medication. DVT prophylaxis xarelto Patient is a full code. Harmony Esparza 06/01/17 0944: Attending MD Review Statement Attending Statement Attending MD Statement: examined this patient, discuss w/resident/PA/SIGHT MOUNTER, agreed w/resident/PA/SIGHT MOUNTER, reviewed EMR data (avail), reviewed images, amended to note Attending Assessment/Plan: CC: Cough and shortness of breath PMH: A. fib, HTN, breast cancer left side, morbid obesity, COPD, hypothyroidism, right Port-A-Cath Patient came to ER for worsening of nonproductive cough. Patient started to notice symptoms 3 weeks back which gradually worsened, she is not been able to sleep because of cough, endorses shortness of breath-most dyspnea on exertion, had low-grade fever and chills at home, she has chronic orthopnea but lately she has noticed increased leg swelling is. One of the lesions started beeping few days back now more crusted other than the symptoms patient denies any nausea vomiting, sick contacts, chest pain, chest tightness, palpitations, presyncopal symptoms. Vitals: BP max 99.7, pulse 96, RR 22, blood pressure 119/74, saturating 97% on 2 L On exam: A O 3, cooperative, morbidly obese, mild respiratory distress, neck supple, JVD could not be appreciated, no lymphadenopathy, mucosa dry, no focal neurological deficit, significant leg edema, chronic venous stasis changes, crusted superficial lesion, no evidence of infection CVS: S1-S2, RRR. RS: Bilateral diffuse wheezing, minimum crackles Abdomen: Soft, NT, ND, bowel sounds present. Labs: WBC 8.3, hemoglobin 13.7, hematocrit 41.6, platelets 186, neutrophils 76%, sodium 144, potassium 4.5, chloride 103, bicarbonate 30, BUN 16, creatinine 0.8, glucose 94, calcium 9.0, lactate 1.3, LFT unremarkable, proBNP 2480, troponin less than 0.01, influenza negative CXR:No convincing radiographic evidence of pneumonia. No acute pulmonary process. ECG: No acute changes Assessment and plan 61-year-old female with multiple comorbidities presented in ER for gradually worsening nonproductive cough, shortness of breath and dyspnea on exertion, has mild fever or chills at home and increased leg swellings. Her symptoms appear to be combination of COPD and heart failure given that she has wheezing, elevated proBNP, mild crackles, leg edema. Less likely DVT or PE given patient is anticoagulated with Xarelto. + COPD exacerbation + Suspected heart failure + History of A. fib, HTN, breast cancer left side, morbid obesity, COPD, hypothyroidism, right Port-A-Cath - Admit to telemetry - Continuous telemetry monitoring - Strict I's and O's - Daily weights - IV Lasix 20 mg twice a day - TRC and nebulization - IV methylprednisolone 40 mg twice a day - IV azithromycin - By mouth Mucinex scheduled - 2-D echocardiogram in a.m. - Cardiology consult - Pulmonology consult - Continue all her home medication except change Lasix to IV - Continue Xeralto
[2017-06-01 06:36] LABS: ABSOLUTE BASOPHIL COUNT 0 /CUMM (0.0-0.2); ABSOLUTE EOSINOPHIL COUNT 0 /CUMM (0.0-0.7); ABSOLUTE LYMPH COUNT 0.8 /CUMM (1.2-3.4); ABSOLUTE MONOCYTE COUNT 0.1 /CUMM (0.10-0.60); BASOPHIL % 0.1 % (0.0-2.0); EOSINOPHIL % 0 % (0-5); GRANULOCYTE % 81.8 % (42.2-75.2); MEAN CORPUSCULAR HGB CONC 32.3 G/DL (33.0-37.0); MEAN CORPUSCULAR VOLUME 86.6 FL (81.0-99.0); MEAN PLATELET VOLUME 9.7 FL (7.4-10.4); PLATELET COUNT 182 /CUMM (130-400); RBC DISTRIBUTION WIDTH 17.6 % (11.5-14.5); RED BLOOD CELL CT 4.85 /CUMM (4.20-5.40); WHITE BLOOD CELL COUNT 4.9 /CUMM (4.8-10.8)
--- NOTE | 2017-06-01 07:36 | PN- Housestaff ---
See Addendum Subjective Follow-up For: CHF Exacerbation COPD Exacerbation Subjective: Patient was seen and examined today. Patient states she continues to feel SOB especially when she is walking to the restroom. Patient states she has a productive cough and is bringing up a small amount of yellow phlegm. Denies hemoptysis. Patient denies chest pain or palpitations. Patient notes feeling dizzy and lightheaded occasionally. Notes swelling in legs bilaterally. Denies chest pain or palpitations. +orthopena. No PND. Patient notes her was recently sick with a cold. Patient is not on oxygen at home. Patient smokes 5 cigarettes per day down from half a pack. Is not currently having any cravings. Review of Systems Constitutional: Reports: chills, fever, weakness. Cardiovascular: Reports: edema, orthopena. Denies: chest pain, palpitations, syncope. Respiratory: Reports: cough, orthopnea, short of breath, sputum production. Denies: hemoptysis. Gastrointestinal: Reports: no symptoms. Genitourinary: Reports: no symptoms. Musculoskeletal: Reports: back pain. Skin: Reports: no symptoms. Neurological/Psychological: Reports: no symptoms. Objective Last 24 Hrs of Vital Signs/I&O Vital Signs Date Time Temp Pulse Resp B/P B/P Pulse O2 O2 Flow FiO2 Mean Ox Delivery Rate 06/01 0648 97.9 84 22 119/56 94 Nasal 2.0L Cannula 06/01 0419 98.0 94 22 124/66 92 Room Air 05/31 2217 98.4 92 18 121/65 93 Nasal 2.0L Cannula 05/31 1807 97 Nasal 2.0L Cannula 05/31 1806 99.7 96 22 119/74 97 Nasal 2.0L Cannula 05/31 1734 92 05/31 1721 95 Nasal 2.0L Cannula 05/31 1644 98.2 92 18 131/85 93 Room Air Intake & Output 06/01 1600 06/01 0800 06/01 0000 Intake Total 0 Output Total 0 Balance 0 Intake, Oral 0 Output, Urine 0 Patient 420 lb Weight Weight Standing Scale Measurement Method Physical Exam General Appearance: Alert, Oriented X3, Cooperative, No Acute Distress Skin Temp/Moisture Exam: Warm/Dry HEENT: Atraumatic, PERRLA, EOMI, Mucous Membr. moist/pink Cardiovascular: Normal S1, Normal S2, irregular rate Lungs: difficult to hear due to large body habitus, scatted scant wheezing bilaterally Abdomen: Normal Bowel Sounds, Soft, No Tenderness Extremities: No Clubbing, No Cyanosis, No Tenderness/Swelling, bilateral pitting edema, mild erythema, pulses palpable bilaterally Current Medications: Current Medications Sig/Eduardo Start time Last Medication Dose Route Stop Time Status Admin Albuterol Sulfate 2 PUF Q4P PRN 05/315 AC INH Albuterol Sulfate 3 ML ONCE ONE 05/31 1729 DC 05/31 INH 05/31 1730 172 Amiodarone HCl 200 MG DAILY 06/01 1000 AC PO Atenolol 25 MG DAILY 06/01 1000 AC PO Azithromycin 500 MG DAILY 06/01 999 AC Dextrose/Water 250 ML IV Azithromycin 500 MG ONCE ONE 05/31 1729 DC 05/31 Dextrose/Water 250 ML IV 05/31 1828 1950 Budesonide/ 2 PUF BID 06/01 999 AC Formoterol Fumarate INH Furosemide 40 MG DAILY 06/01 999 CAN PO Furosemide 20 MG 7:30 AM, & 4:30 PM 06/01 729 AC 06/01 IV 0732 Furosemide 0 .STK-MED ONE 05/31 2316 DC IV Furosemide 40 MG ONCE ONE 05/31 2199 DC 05/31 IV PUSH 05/31 2200 2325 Guaifenesin 600 MG Q12 06/01 1000 AC PO Letrozole 2.5 MG DAILY 06/01 999 AC PO Levothyroxine Sodium 0.088 MG DAILY AC 06/01 0700 AC 06/01 PO 0732 Methylprednisolone 40 MG Q12 06/01 1000 AC IV Methylprednisolone 0 .STK-MED ONE 05/31 1819 DC .ROUTE Methylprednisolone 125 MG ONCE ONE 05/31 1729 DC 05/31 IV 05/31 1730 182 Rivaroxaban 20 MG DAILY 06/01 1000 AC PO Sertraline HCl 25 MG DAILY 06/01 1000 AC PO Tiotropium [place] 1 PUF DAILY 06/01 1000 AC INH Last 24 Hrs of Lab/Sukumar Results Last 24 Hrs of Labs/Mics: Laboratory Tests 06/01/17 0543: Anion Gap 14, Estimated GFR > 60, BUN/Creatinine Ratio 21.3, CBC w Diff NO MAN DIFF REQ, RBC 4.85, MCV 86.6, MCH 28.0, MCHC 32.3 L, RDW 17.6 H, MPV 9.7, Gran % 81.8 H, Lymphocytes % 16.3 L, Monocytes % 1.8, Eosinophils % 0, Basophils % 0.1, Absolute Granulocytes 4.0, Absolute Lymphocytes 0.8 L, Absolute Monocytes 0.1, Absolute Eosinophils 0, Absolute Basophils 0 06/01/17 0251: Troponin I < 0.01 05/31/172020: Lactic Acid 1.0 05/31/171749: Anion Gap 12, Estimated GFR > 60, BUN/Creatinine Ratio 20.0, Glucose 94, Lactic Acid 1.3, Calcium 9.0, Total Bilirubin 0.6, AST 21, ALT 29, Alkaline Phosphatase 58, Troponin I < 0.01, Jfb-X-Rkwgzefwsqg Pept 2480 H, Total Protein 6.8, Albumin 3.8, Globulin 3.0, Albumin/Globulin Ratio 1.3, CBC w Diff NO MAN DIFF REQ, RBC 4.82, MCV 86.2, MCH 28.4, MCHC 33.0, RDW 17.8 H, MPV 9.1, Gran % 76.4 H, Lymphocytes % 13.4 L, Monocytes % 9.6 H, Eosinophils % 0.2, Basophils % 0.4 , Absolute Granulocytes 6.3, Absolute Lymphocytes 1.1 L, Absolute Monocytes 0.8 H, Absolute Eosinophils 0, Absolute Basophils 0 Microbiology 05/31 1911 BLOOD: Blood Culture - RECD 05/31 1899 BLOOD: Blood Culture - RECD 05/31 175 NASOPHARYN: Influenza Virus A & B Rapid Smear - COMP 05/31 172 LOWER RESP: Respiratory Culture - ORD 05/31 1720 LOWER RESP: Gram Stain - ORD Assessment/Plan Assessment: Patient is a morbidly obese 61 y/o female with PMH signficant for COPD, HTN, Hypothyroidism, breast cancer currently on letrozole with a right Port-A-Cath, Atrial fibrillation on Xarelto presenting with chief complaint of dyspnea at rest and on exertion, productive cough, fever and chills and worsening bilateral lower extremity swelling. On admission patient was noted to have bilateral lower extremity edema, wheezing heard on ausculation, requiring 2L NC oxygen saturating in the lows 90s and an elevated proBNP (double of baseline). Patient's CXR was negative for acute findings. Patient's EKG showed atrial fibrillation. Trops were negative. Patient had an elevated d-dimer. Patient in the ED received IV Lasix, IV steroids and supplemental oxygen with improvement in her breathing and shortness of breath. Patient today continued to improve with the current management of her COPD and CHF exacerbation. Pulmonology was consulted. Sputum cultures ordered. Patient to continue TRC, IV steroids and IV lasix at this time. Patient was noted to have signs and symptoms consistent with sleep apnea. 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 Will require outpatient follow up. Problem list 1. COPD exacerbation 2. Possible CHF exacerbation 3. History of A. fib, breast cancer with Right Port-A-Cath, hypothyroidism, hypertension 4. Likely DIONNE Plan -Admit to telemetry -Continuous telemetry monitoring -Continue IV Solu-Medrol 40 mg twice a day -Continue Lasix IV 20 mg daily -Continue mucinex -Continue azithromycin -TRC/nebs -Echo pending -Cardiology and pulmonology on board. Appreciate recommendations -Wean off O2 as tolerated -Patient's oncologist Dr. Lionel Harrison has been made aware of this admission -continue home medications: xarelto, letrozole, atenolol, amiodarone, levothyroxine Diet: Heart healthy diet DVT prophylaxis: Xarelto and ALPS Code: Full code Dispo: upon discharge patient should follow up with pulmonology for sleep study and PFTs Problem List: 1. CHF (congestive heart failure) 2. COPD exacerbation Pain Ratin Pain Location: n/a Pain Goal: Remain pain free Pain Plan: n/a Tomorrow's Labs & Rationales: BEP - on lasix
--- NOTE | 2017-06-01 08:54 | PN- Student ---
Subjective Subjective: Bruce Dificulty Breathing Patient is a 61 year old female with a past medical history of COPD,hypertention ,hypothyroidism,morbid obesity,lung canger in remission currently on hormonal therapy,AFibb,Pheripheral lower leg edema currently on l
--- NOTE | 2017-06-01 09:45 | Admission Certification ---
Admission Certification Certification Statement - As attending physician, I certify that at the time of - admission, based on clinical presentation, severity of - symptoms, need for further diagnostic testing and - therapeutic interventions, and risk of adverse outcomes - without in-hospital treatment, in my clinical assessment, - this patient requires an acute hospital stay for a minimum - of two nights or longer. I have also considered psychsocial - factors such as support system, advanced age, financial - issues, cognitive issues, and failed out-patient treatments, - past re-admission history, safety of patient, and lack of - compliance as applicable. Specific rationale supporting this admission is: COPD exacerbation, suspected heart failure
--- NOTE | 2017-06-01 14:59 | Cons- Pulmonary ---
General Information and HPI Consulting Request Date of Consult: 06/01/17 Requested By: Ryder Reason for Consult: Exacerbation of COPD hypoxic respiratory failure History of Present Illness: Patient is a 61-year-old morbidly obese woman actively smoking admitted with increasing shortness of breath cough wheezing and worsening lower extremity edema. She has smoked for the past 41 years and continues to smoke approximately half pack per day. She's had increasing cough sputum production of the past several weeks with increasing shortness of breath wheezing and lower extremity edema. She developed a draining right lower extremity ulcer approximately a week ago. She denies having had pulmonary function testing. She does have excessive daytime somnolence and snoring. Cardiac ultrasound several years ago showed evidence of pulmonary hypertension. Allergies/Medications Allergies: Coded Allergies: NO KNOWN ALLERGIES (07/05/13) Home Med List: Acetaminophen (Tylenol Extra Strength) 500 MG TABLET 2 TAB PO PRN PAIN ( Reported) Albuterol Sulfate (Proair Hfa) 90 MCG HFA.AER.AD 2 PUF INH AD PRN RESPIRATORY (Reported) Amiodarone (Cordarone) 200 MG TABLET 1 TAB PO DAILY HEART (Reported) Amoxicillin 875 MG TABLET 1 TAB PO BID open fracture Atenolol 25 MG TABLET 1 TAB PO DAILY BP (Reported) Budesonide/Formoterol Fumarate (Symbicort 160-4.5 Mcg Inhaler) 10.2 GM HFA.AER.AD 2 PUF INH BID COPD (Reported) Furosemide 40 MG TABLET 1 TAB PO DAILY DIURETIC (Reported) Letrozole (Femara) 2.5 MG TABLET 1 TAB PO DAILY CANCER (Reported) Levothyroxine Sodium (Synthroid) 88 MCG TABLET 1 TAB PO DAILY THYROID ( Reported) Oxycodone HCl/Acetaminophen (Percocet 5-325 MG Tablet) 5 MG-325 MG TABLET 1 TAB PO TID PRN pain Rivaroxaban (Xarelto) 20 MG TABLET 1 TAB PO DAILY BLOOD THINNER (Reported) with food Sertraline HCl 25 MG TABLET 1 TAB PO DAILY MENTAL HEALTH (Reported) Sulfamethoxazole/Trimethoprim (Bactrim Ds Tablet) 800 MG-160 MG TABLET 1 TAB PO BID open fracture Tiotropium Dietrich (Spiriva) 18 MCG CAP.W.DEV 1 CAP INH DAILY COPD (Reported) Review of Systems Review of Systems Constitutional: Denies: chills, fever. Cardiovascular: Reports: peripheral edema. Denies: chest pain. Respiratory: Reports: cough, short of breath, sputum production, wheezing. Denies: hemoptysis. GI: Denies: abdominal pain, diarrhea, melena. 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 spouse, child Services at Home: None Primary Language: Cameroonian Smoking Status: Current Everyday Smoker (30+ pack year hx) ETOH Use: denies use Illicit Drug Use: denies illicit drug use Exam & Diagnostic Data Last 24 Hrs of Vital Signs/I&O Vital Signs Date Time Temp Pulse Resp B/P B/P Pulse O2 O2 Flow FiO2 Mean Ox Delivery Rate 06/01 1050 97.9 87 22 114/70 06/01 1049 87 22 114/70 06/01 0648 97.9 84 22 119/56 94 Nasal 2.0L Cannula 06/01 0419 98.0 94 22 124/66 92 Room Air 05/31 2217 98.4 92 18 121/65 93 Nasal 2.0L Cannula 05/31 1807 97 Nasal 2.0L Cannula 05/31 1806 99.7 96 22 119/74 97 Nasal 2.0L Cannula 05/31 1734 92 05/31 1721 95 Nasal 2.0L Cannula 05/31 1644 98.2 92 18 131/85 93 Room Air Intake & Output 06/01 1600 06/01 0800 02 0000 Intake Total 0 Output Total 0 Balance 0 Intake, Oral 0 Output, Urine 0 Patient 420 lb Weight Weight Standing Scale Measurement Method Patient is a comfortable obese woman oxygen saturation 2 L 94% HEENT exam shows no adenopathy exam for chest shows diminished breath sounds. No wheezes or crackles cardiac exam shows a regular rhythm there are no murmurs abdomen soft nontender extremities have 2-3+ symmetrical pitting edema over the right anterior lower extremity is a small ulcer measuring approximately 1.5 x 1 cm with adherent slough Last 48 Hrs of Labs/Sukumar: Laboratory Tests 06/01/17 0543: Anion Gap 14, Estimated GFR > 60, BUN/Creatinine Ratio 21.3, CBC w Diff NO MAN DIFF REQ, RBC 4.85, MCV 86.6, MCH 28.0, MCHC 32.3 L, RDW 17.6 H, MPV 9.7, Gran % 81.8 H, Lymphocytes % 16.3 L, Monocytes % 1.8, Eosinophils % 0, Basophils % 0.1, Absolute Granulocytes 4.0, Absolute Lymphocytes 0.8 L, Absolute Monocytes 0.1, Absolute Eosinophils 0, Absolute Basophils 0 06/01/17 0251: Troponin I < 0.01 05/31/172020: Lactic Acid 1.0 05/31/171749: Anion Gap 12, Estimated GFR > 60, BUN/Creatinine Ratio 20.0, Glucose 94, Lactic Acid 1.3, Calcium 9.0, Total Bilirubin 0.6, AST 21, ALT 29, Alkaline Phosphatase 58, Troponin I < 0.01, Vyz-[id number]-Yimtjxeeyss Pept 2480 H, Total Protein 6.8, Albumin 3.8, Globulin 3.0, Albumin/Globulin Ratio 1.3, CBC w Diff NO MAN DIFF REQ, RBC 4.82, MCV 86.2, MCH 28.4, MCHC 33.0, RDW 17.8 H, MPV 9.1, Gran % 76.4 H, Lymphocytes % 13.4 L, Monocytes % 9.6 H, Eosinophils % 0.2, Basophils % 0.4 , Absolute Granulocytes 6.3, Absolute Lymphocytes 1.1 L, Absolute Monocytes 0.8 H, Absolute Eosinophils 0, Absolute Basophils 0 Microbiology 05/31 1757 NASOPHARYN: Influenza Virus A & B Rapid Smear - COMP Assessment/Plan Impression/Plan: 61-year-old morbidly obese woman over [id number] smoking history admitted with exacerbation of COPD and hypoxic history failure. She likely has pulmonary hypertension secondary to obstructive sleep apnea. Recommendations: Sputum culture. Continue steroids supplemental oxygen aggressive pulmonary toilet. She Has been counseled regarding smoking cessation. Mild negative fluid balance. Taper FiO2 saturations allow. Patient will need outpatient pulmonary function testing and nocturnal polysomnography. Repeat cardiac ultrasound to assess pulmonary artery pressures. Consult Acknowledgment - Thank you for your consult request.
[2017-06-01 16:59] VITALS: BP 119/78
[2017-06-01 17:46] VITALS: BP 104/70
--- NOTE | 2017-06-01 18:41 | Cons- Cardiology ---
General Information and HPI Consulting Request Date of Consult: 06/01/17 Requested By: Laureano Dean MD History of Present Illness: Shakira is a 61 year old female who carries a history of hypertension, tobacco abuse, and morbid obesity who was initially seen with complaints of dizziness and lightheadedness. These symptoms appeared to be related to atrial fibrillation with rapid ventricular rate which was discovered by Dr. Grimes at his office. I initially cardioverted the patient with ibutilide, however, she converted back to atrial fibrillation. Amiodarone which she is currently on has not proved effective at maintaining NSR but is helping to control her heart rate. Finally, this patient was diagnosed with stage IIIA breast cancer and is on medications for this including Letrozole. Over the past few days this patient has noted shortness of breath with orthopnea and a cough productive of scant whitish-yellow sputum. She has weakness and generalized achiness and has noted her legs swelling beyond baseline. She also has occasional palpitations but not beyond baseline and she has noted episodes of lightheadedness. At her baseline, this patient has exercise intolerance characterized by shortness of breath and cannot engage in very much activity before becoming winded. She also complains of orthopnea. She never obtained a CPAP machine due to its cost. She does have some occasional palpitations but otherwise has no chest pain, pressure or tightness. It should be recalled that Shakira has had some prior episodes of decreased attentiveness with an inability to speak as well as dropping objects from her hands. This occurred after she arose to walk. She had been on her feet for about five minutes and it appeared that this was probably a TIA related to her atrial fibrillation. Fortunately, no similar episodes have occurred. This patient is currently on Xarelto therapy. A prior sleep study was performed which was significant for sleep apnea, however, the patient refused CPAP due to its cost. Shakira has also undergone a stress test which showed an overall EF of 41%. There was a large region of decreased radiotracer uptake inferiorly with rest images consistent with ischemia vs. diaphragmatic attentuation. This patient did not opt to followup with a cardiac catheterization due to a co-pay. hypertrophy with a normal EF of 55%. The left atrium was mildy enlarged. In terms of cardiac valves, there was evidence of trace mitral regurgitation and trace to mild tricuspid regurgitation. Her TSH was within normal limits Allergies/Medications Allergies: Coded Allergies: NO KNOWN ALLERGIES (07/05/13) Home Med List: Acetaminophen (Tylenol Extra Strength) 500 MG TABLET 2 TAB PO PRN PAIN ( Reported) Albuterol Sulfate (Proair Hfa) 90 MCG HFA.AER.AD 2 PUF INH AD PRN RESPIRATORY (Reported) Amiodarone (Cordarone) 200 MG TABLET 1 TAB PO DAILY HEART (Reported) Amoxicillin 875 MG TABLET 1 TAB PO BID open fracture Atenolol 25 MG TABLET 1 TAB PO DAILY BP (Reported) Budesonide/Formoterol Fumarate (Symbicort 160-4.5 Mcg Inhaler) 10.2 GM HFA.AER.AD 2 PUF INH BID COPD (Reported) Furosemide 40 MG TABLET 1 TAB PO DAILY DIURETIC (Reported) Letrozole (Femara) 2.5 MG TABLET 1 TAB PO DAILY CANCER (Reported) Levothyroxine Sodium (Synthroid) 88 MCG TABLET 1 TAB PO DAILY THYROID ( Reported) Oxycodone HCl/Acetaminophen (Percocet 5-325 MG Tablet) 5 MG-325 MG TABLET 1 TAB PO TID PRN pain Rivaroxaban (Xarelto) 20 MG TABLET 1 TAB PO DAILY BLOOD THINNER (Reported) with food Sertraline HCl 25 MG TABLET 1 TAB PO DAILY MENTAL HEALTH (Reported) Sulfamethoxazole/Trimethoprim (Bactrim Ds Tablet) 800 MG-160 MG TABLET 1 TAB PO BID open fracture Tiotropium Caraway (Spiriva) 18 MCG CAP.W.DEV 1 CAP INH DAILY COPD (Reported) Past History Travel History Traveled to [place] past 21 day No Medical History Neurological: NONE EENT: NONE Cardiovascular: AFIB, hypertension Respiratory: asthma, COPD, obstructive sleep apnea Gastrointestinal: NONE Hepatic: NONE Renal: NONE Musculoskeletal: NONE Psychiatric: NONE Endocrine: THYROID Blood Disorders: NONE 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 Mother: of leukemia at age 72; diabetes Father: of an KS at ag 48 Psychosocial History Who Do You Live With? spouse, child Services at Home: None Primary Language: Kosovan Smoking Status: Current Everyday Smoker (30+ pack year hx/1ppd) ETOH Use: denies use Illicit Drug Use: denies illicit drug use Exam & Diagnostic Data Vital Signs and I&O Vital Signs Date Time Temp Pulse Resp B/P B/P Pulse O2 O2 Flow FiO2 Mean Ox Delivery Rate 06/01 1746 98.2 89 18 104/70 94 Nasal 2.0L Cannula 06/01 1730 Nasal 2.0L Cannula 06/01 1659 97.9 86 22 119/78 92 Room Air 06/01 1050 97.9 87 22 114/70 06/01 1049 87 22 114/70 06/01 0648 97.9 84 22 119/56 94 Nasal 2.0L Cannula 06/01 0419 98.0 94 22 124/66 92 Room Air 05/31 2217 98.4 92 18 121/65 93 Nasal 2.0L Cannula Intake & Output 06/01 1600 06/01 0800 06/01 0000 05/31 1600 05/31 0800 05/31 0000 Intake Total 0 Output Total 0 Balance 0 Intake, Oral 0 Output, Urine 0 Patient 420 lb Weight Weight Standing Scale Measurement Method Physical Exam: General: WD/obese female in NAD; alert and oriented x 3 HEENT: NC/AT, PERRL, EOMI Neck: no JVD, no carotid bruit Heart: irregularly irregular with mild tachycardia Lungs: expiratory wheezing bilaterally Abdomen: soft, obese, NT, +ve bowel sounds Extremities: 3+ leg edema bilaterally Assessment/Plan Assessment/Plan * Shakira has peripheral edema that is likely due to elevated RV pressures and to her morbid obesity. She does not appear to have signs of left heart failure although her shortness of breath is a symptom that would go along with this diagnosis. I suspect that this patient has a viral exacerbation of COPD with accompanying wheezing rather than left heart failure. Right heart failure is likely and may be related to increased pulmonary pressures and DIONNE. Diurese with Lasix at 40mg IV BID. Weight loss has been discussed but is unlikely to be accomplished. I continue to recommended that this patient investigate bariatric surgery since dieting has only been met with weight gain. A low sodium diet is also recommended. Atenolol was added to her drug regimen to lower her heart rate and blood pressure. A cardiac cath would be needed prior to bariatric surgery if this option is pursued. * This patient has been encouraged to pursue CPAP therapy for her DIONNE. I believe that this condition may well be increasing her chance of being hypertensive and increases the likelihood of RV failure. She has not followed this particular recommendation. * Shakira is anticoagulated with Xarelto. She was not compliant with INR's when previously on coumadin. Her heart rate is at the upper limits of normal. I encouraged her to take her medications faithfully since the above finding are still noted. This patient does not appear to be capable of remaining in a normal sinus rhythm even on Amiodarone. We will nevertheless continue it for now for rate control. It should be recalled that this patient previously had symptoms suggestive of TIA's but this should be managed by her being on Xarelto now. * This patient has a slighly lower EF than she previously had but no definite ischemia. She has refused a cardiac catheterization. At this point we will pursue risk factor managment. * obtain an echocardiogram to assess RV pressures and LV function. Consult Acknowledgment - Thank you for your consult request.
[2017-06-01 22:09] VITALS: BP 120/70
[2017-06-02 06:39] VITALS: BP 138/72
--- NOTE | 2017-06-02 07:25 | ECHOCARDIOGRAM REPORT ---
RAE AUGERO Age: 61 : 1955 Gender: F Exam Date: 06/01/2017 15:35 Exam Location: ER Ht (in): 68 Wt (lb): 420 BSA: 3.15 BP: 119 / 56 Ordering Physician: Ajay Lake MD Referring Physician: Mason Gallo MD, PhD Technologist: Rody Tadeo [facility] Room Number: [id number] Indications: HEART FAILURE Rhythm: Atrial fibrillation Technical Quality: poor FINDINGS Left Ventricle Normal left ventricular size with moderate left ventricular hypertrophy. Normal systolic function with no obvious regional wall motion abnormalitie based on limited views. The ejection fraction is visually estimated at 60%. Right Ventricle The right ventricle is normal in size and function. Right Atrium The right atrium is normal in size. Left Atrium The left atrium is moderately enlarged. The interatrial septum is intact. Mitral Valve The mitral valve demonstrates mild anterior annular calcification with normal function. There is mild mitral regurgitation. Aortic Valve Structurally normal aortic valve without significant sclerosis or stenosis. There is trace aortic regurgitation. Tricuspid Valve The tricuspid valve is normal in structure and function. There is mild tricuspid regurgitation. Pulmonary artery systolic pressure is normal at 33mmHg. Pulmonic Valve Structurally normal pulmonic valve. There is trace pulmonic regurgitation. Pericardium Normal pericardium without effusion. No pleural effusion. Great Vessels Normal aortic root dimension. The aortic arch and great vessels are well seen and are normal. CONCLUSIONS 1. Normal EF of 60% based on limited views. Recommend repeat echo with contrast. 2. Moderate left ventricular hypertrophy. 3. Moderate left atrial enlargement. 4. Mild mitral regurgitation. 5. Mild tricuspid regurgitation. 6. Trace aortic regurgitation. 7. Trace pulmonic regurgitation. Mason Gallo M.D. (Electronically Signed) Final Date: 02 June 2017 07:24 MEASUREMENTS (Male / Female) Normal Values 2D ECHO LV Diastolic Diameter PLAX 4.2 cm 4.2 - 5.9 / 3.9 - 5.3 cm LV Systolic Diameter PLAX 2.7 cm 2.1 - 4.0 cm LV Fractional Shortening PLAX 35.7 % 25 - 46 % LV Ejection Fraction 2D Teich 65.6 % IVS Diastolic Thickness 1.6 cm LVPW Diastolic Thickness 1.6 cm LV Relative Wall Thickness 0.8 RV Internal Dim ED PLAX 3.4 cm 1.9 - 3.8 cm LVOT Diameter 2.2 cm Aortic Root Diameter 2.7 cm LA Systolic Diameter LX 4.8 cm 3.0 - 4.0 / 2.7 - 3.8 cm LA Volume 59.0 cm 18 - 58 / 22 - 52 cm Ascending Aorta Diameter 3.4 cm DOPPLER AV Peak Velocity 120.0 cm/s AV Peak Gradient 5.8 mmHg AV Mean Velocity 82.9 cm/s AV Mean Gradient 3.0 mmHg AV Velocity Time Integral 24.1 cm LVOT Peak Velocity 95.5 cm/s LVOT Peak Gradient 3.6 mmHg LVOT Mean Velocity 65.4 cm/s LVOT Mean Gradient 2.0 mmHg LVOT Velocity Time Integral 19.2 cm LVOT Stroke Volume 73.0 cm AV Area Cont Eq vti 3.0 cm AV Area Cont Eq pk 3.0 cm MV Peak Velocity 116.0 cm/s MV Peak Gradient 5.4 mmHg MV Mean Velocity 60.5 cm/s MV Mean Gradient 2.0 mmHg Mitral E Point Velocity 108.0 cm/s MV PHT Velocity 121.0 cm/s MV Deceleration Knox 417.0 cm/s MV Pressure Half Time 87.1 ms MV Area PHT 2.5 cm MV Deceleration Time 155.0 ms TR Peak Velocity 274.0 cm/s TR Peak Gradient 30.0 mmHg Right Atrial Pressure 5.0 mmHg Pulmonary Artery Systolic Pressu 35.0 mmHg Right Ventricular Systolic Press 35.0 mmHg PV Peak Velocity 75.4 cm/s PV Peak Gradient 2.3 mmHg PV Mean Velocity 50.7 cm/s PV Mean Gradient 1.0 mmHg PV Velocity Time Integral 11.3 cm LV E' Lateral Velocity 16.4 cm/s Mitral E to LV E' Lateral Ratio 6.6 LV E' Septal Velocity 12.5 cm/s Mitral E to LV E' Septal Ratio 8.6
--- NOTE | 2017-06-02 07:40 | PN- Housestaff ---
Baylee MÉNDEZ,Hipolito 06/02/17 0739: Subjective Follow-up For: COPD Exacerbation A.fibrillation LE Edema Tele-Events Since Last Visit: Vandana/Criss: HR: 77-96 Subjective: Patient was seen and examined today. Patient reports improved breathing and decreased shortness of breath on exerition and at rest. Patient has been walking with cane to and from bed to the restroom. Also reports decreased swelling on her legs. Now notes right leg wound that is weeping. Patient states she is continuing to cough however it is now nonproductive. Patient denies fever, chills, chest pain, palpitations, dizziness, lightheadedness. Spoke to patient about sleep study and CPAP. She notes that she last had a sleep study done 5 to 10 years prior and was unable to afford the CPAP machine due to her insurance. Patient is willing to go for sleep study and use CPAP if necessary. No acute events overnight. Review of Systems Constitutional: Reports: no symptoms. Cardiovascular: Reports: edema, orthopena. Respiratory: Reports: cough, short of breath, wheezing. Gastrointestinal: Reports: no symptoms. Genitourinary: Reports: frequency (on lasix increased dose). Musculoskeletal: Reports: no symptoms. Neurological/Psychological: Reports: no symptoms. Objective Last 24 Hrs of Vital Signs/I&O Vital Signs Date Time Temp Pulse Resp B/P B/P Pulse O2 O2 Flow FiO2 Mean Ox Delivery Rate 06/02 927 90 134/70 06/02 0927 90 134/70 06/02 0856 96 Nasal 1.0L Cannula 06/02 0800 96 Room Air 06/02 0639 97.9 80 20 138/72 93 Nasal 1.0L Cannula 06/02 0000 94 Nasal 2.0L Cannula 06/01 2209 98.0 93 22 120/70 91 06/01 1945 Nasal 2.0L Cannula 06/01 1746 98.2 89 18 104/70 94 Nasal 2.0L Cannula 06/01 1730 Nasal 2.0L Cannula 06/01 1659 97.9 86 22 119/78 92 Room Air Intake & Output 06/02 1600 06/02 0800 06/02 0000 Intake Total 600 850 Output Total 250 Balance 350 850 Intake, IV 250 Intake, Oral 600 600 Output, Urine 250 Patient 400 lb Weight Weight Estimated Measurement Method Physical Exam General Appearance: Alert, Oriented X3, Cooperative HEENT: Atraumatic, PERRLA, EOMI, Mucous Membr. moist/pink Cardiovascular: Normal S1, Normal S2, irregular rate Lungs: diffuse expiratory wheezing bilaterally and coarse breath sounds Abdomen: Normal Bowel Sounds, Soft, No Tenderness Extremities: No Clubbing, No Cyanosis, No Tenderness/Swelling, bilateral lower extremity edema 3+ with a small nonerythematous wheeping wound on the right dang Vascular: Pulses Symmetrical Current Medications: Current Medications Sig/Eduardo Start time Last Medication Dose Route Stop Time Status Admin Albuterol Sulfate 3 ML EVERY 4 HRS/AWAKE 06/01 1999 AC 06/02 INH 0852 Albuterol Sulfate 2 PUF Q4P PRN 05/31 2315 AC INH Amiodarone HCl 200 MG DAILY 06/01 999 AC 06/02 PO 0928 Atenolol 25 MG DAILY 06/01 999 AC 06/02 PO 0927 Azithromycin 500 MG Q24H 06/01 1999 AC 06/01 Dextrose/Water 250 ML IV 223 Budesonide/ 2 PUF BID 06/01 999 AC 06/02 Formoterol Fumarate INH 0924 Furosemide 40 MG 7:30 AM, & 4:30 PM 06/02 0730 DC 06/02 IV 0637 Furosemide 0 .STK-MED ONE 06/01 1643 DC IV Furosemide 20 MG 7:30 AM, & 4:30 PM 06/01 0730 DC 06/01 IV 1646 Guaifenesin 600 MG Q12 06/01 1000 AC 06/02 PO 0927 Influenza Virus 0.5 ML ONCE ONE 06/01 1815 DC Vaccine IM 06/01 1816 Letrozole 2.5 MG DAILY 06/01 999 AC 06/02 PO 0928 Levothyroxine Sodium 0.088 MG DAILY AC 06/01 0700 AC 06/02 PO 0635 Methylprednisolone 40 MG Q12 06/01 1000 DC 06/01 IV 2232 Prednisone 60 MG DAILY 06/02 999 AC PO Rivaroxaban 20 MG DAILY 06/01 1000 AC 06/02 PO 0927 Sertraline HCl 25 MG DAILY 06/01 1000 AC 06/02 PO 0928 Tiotropium [place] 1 PUF DAILY 06/01 1000 AC 06/02 INH 0928 Last 24 Hrs of Lab/Sukumar Results Last 24 Hrs of Labs/Mics: Laboratory Tests 06/02/17 0620: Anion Gap 9, Estimated GFR > 60, BUN/Creatinine Ratio 28.9 H Microbiology 06/01 1640 LOWER RESP: Respiratory Culture - CAN Cancelled: NUMBER OF SQUAMOUS CELLS INDICATES POOR QUALITY SPECIMEN 06/01 1640 LOWER RESP: Gram Stain - CAN Cancelled: NUMBER OF SQUAMOUS CELLS INDICATES POOR QUALITY SPECIMEN Assessment/Plan Assessment: Patient is a morbidly obese 61 y/o female with PMH signficant for COPD, HTN, Hypothyroidism, breast cancer currently on letrozole with a right Port-A-Cath, Atrial fibrillation on Xarelto presenting with chief complaint of dyspnea at rest and on exertion, productive cough, fever and chills and worsening bilateral lower extremity swelling. On admission patient was noted to have bilateral lower extremity edema, wheezing heard on ausculation, requiring 2L NC oxygen saturating in the lows 90s and an elevated proBNP (double of baseline). Patient's CXR was negative for acute findings. Patient's EKG showed atrial fibrillation. Trops were negative. Patient had an elevated d-dimer. Patient in the ED received IV Lasix, IV steroids and supplemental oxygen with improvement in her breathing and shortness of breath. Patient today continued to have improvement in breathing with decreased oxygen requirement on the increased dose of lasix. Patient switched to PO prednisone and PO azithromycin. Patient is no longer bring up sputum. Spoke to patient today about CPAP. Patient states she previously had issues with insurance and her CPAP machine was not covered which is the reason behind her noncompliance. Spoke to case management. They will work with patient to see if this is still an issue now. Problem list 1. COPD exacerbation 2. Possible CHF exacerbation 3. History of A. fib, breast cancer with Right Port-A-Cath, hypothyroidism, hypertension 4. Likely DIONNE Plan -Admit to telemetry -Continuous telemetry monitoring -Discontinued IV Solu-Medrol 40 mg twice a day -Started on PO prednisone -Continue Lasix IV 40mg BID -Continue mucinex -Continue azithromycin - switched from IV to PO -TRC/nebs -Echo pending -Cardiology and pulmonology on board. Appreciate recommendations -Wean off O2 as tolerated -Patient's oncologist Dr. Lionel Harrison has been made aware of this admission -continue home medications: xarelto, letrozole, atenolol, amiodarone, levothyroxine Diet: Heart healthy diet DVT prophylaxis: Xarelto and ALPS Code: Full code Dispo: upon discharge patient should follow up with pulmonology for sleep study and PFTs Problem List: 1. Fluid overload 2. COPD exacerbation Pain Ratin Pain Location: n/a Pain Goal: Remain pain free Pain Plan: n/a Tomorrow's Labs & Rationales: bep - on Laureano Guillory MD 06/02/17 2004: Attending MD Review Statement Attending Statement Attending MD Statement: examined this patient, discuss w/resident/PA/SENIOR MECHANICAL ENGINEER, agreed w/resident/PA/SENIOR MECHANICAL ENGINEER, discussed with family, reviewed EMR data (avail), discussed with nursing, discussed with case mgmt, amended to note Attending Assessment/Plan: The patient was seen and discussed with house staff, family, and Cardiology (Dr. Gallo). Pulmonary follow-up appreciated. The patient c/o feeling fatigued, some headache, dry mouth/eyes/skin. She had a prior sleep study here (5+ years ago) and states that at that time she was told she needed CPAP, however here insurance would not cover it. On exam she has slightly improved air movement with fine wheezing persisting. She does have mild erythema on right pre-tibial area that appears improved (?stasis changes). She states that oral Lasix was not working for her (possibly due to gut edema). Dr. Gallo stated ECHO was suboptimal to evaluate for pulmonary HTN and will order ECHO with contrast to obtain better result. Will add artificial tears, artificial saliva (Salivart), and Lubriderm bid to regimen (told patient to apply moisturizing cream while skin is still damp). Continue IV Lasix and follow weights and I/O's.
--- NOTE | 2017-06-02 09:35 | PN- Pulmonary ---
Subjective HPI/Critical Care Issues: Patient feels improved comfortable on room air Objective Current Medications: Current Medications Sig/Eduardo Start time Last Medication Dose Route Stop Time Status Admin Albuterol Sulfate 3 ML EVERY 4 HRS/AWAKE 06/01 1999 AC 06/02 INH 0852 Albuterol Sulfate 2 PUF Q4P PRN 05/31 2315 AC INH Amiodarone HCl 200 MG DAILY 06/01 1000 AC 06/01 PO 1049 Atenolol 25 MG DAILY 06/01 1000 AC 06/01 PO 1050 Azithromycin 500 MG Q24H 06/01 1999 AC 06/01 Dextrose/Water 250 ML IV 2232 Azithromycin 500 MG DAILY 06/01 1000 DC Dextrose/Water 250 ML IV Budesonide/ 2 PUF BID 06/01 1000 AC 06/01 Formoterol Fumarate INH 1050 Furosemide 40 MG 7:30 AM, & 4:30 PM 06/02 0730 AC 06/02 IV 0637 Furosemide 0 .STK-MED ONE 06/01 1643 DC IV Furosemide 20 MG 7:30 AM, & 4:30 PM 06/01 0730 DC 06/01 IV 1646 Guaifenesin 600 MG Q12 06/01 1000 AC 06/01 PO 2232 Influenza Virus 0.5 ML ONCE ONE 06/01 1815 DC Vaccine IM 06/01 1816 Letrozole 2.5 MG DAILY 06/01 1000 AC 06/01 PO 1049 Levothyroxine Sodium 0.088 MG DAILY AC 06/01 0700 AC 06/02 PO 0635 Methylprednisolone 40 MG Q12 06/01 1000 AC 06/01 IV 2232 Rivaroxaban 20 MG DAILY 06/01 1000 AC 06/01 PO 1051 Sertraline HCl 25 MG DAILY 06/01 1000 AC 06/01 PO 1051 Tiotropium [place] 1 PUF DAILY 06/01 1000 AC 06/01 INH 1050 Vital Signs & I&O Last 24 Hrs of Vitals and I&O: Vital Signs Date Time Temp Pulse Resp B/P B/P Pulse O2 O2 Flow FiO2 Mean Ox Delivery Rate 06/02 0856 96 Nasal 1.0L Cannula 06/02 0639 97.9 80 20 138/72 93 Nasal 1.0L Cannula 06/02 0000 94 Nasal 2.0L Cannula 06/01 2209 98.0 93 22 120/70 91 02 1945 Nasal 2.0L Cannula 06/01 1746 98.2 89 18 104/70 94 Nasal 2.0L Cannula 06/01 1730 Nasal 2.0L Cannula 06/01 1659 97.9 86 22 119/78 92 Room Air 06/01 1050 97.9 87 22 114/70 06/01 1049 87 22 114/70 Intake & Output 06/02 1600 06/02 0800 06/02 0000 Intake Total 600 850 Output Total 250 Balance 350 850 Intake, IV 250 Intake, Oral 600 600 Output, Urine 250 Patient 400 lb Weight Weight Estimated Measurement Method And saturation 1 L 96% exam for chest shows somewhat diminished breath sounds there are no wheezes or crackles cardiac exam shows regular S1 and S2 there is persistent lower extremity edema Impression/Plan Impression/Plan Impression/Plan: 61-year-old morbidly obese woman over [id number] smoking history admitted with exacerbation of COPD and hypoxic respiratory failure. She is clinically improved. Her sputum is rejected for squamous cells Recommendations: Sputum culture. DC IV steroids begin oral prednisone She Has been counseled regarding smoking cessation. Mild negative fluid balance. Taper FiO2 saturations allow. Patient will need outpatient pulmonary function testing and nocturnal polysomnography.
[2017-06-02 14:14] VITALS: BP 116/74
[2017-06-02 21:44] VITALS: BP 132/78
--- NOTE | 2017-06-02 21:51 | PN- Cardiology ---
Subjective Subjective: * Breathing is improved but not back to baseline. Brief atypical chest discomfort. * sinus rhythm Objective Vital Signs and I&Os Vital Signs Date Time Temp Pulse Resp B/P B/P Pulse O2 O2 Flow FiO2 Mean Ox Delivery Rate 06/024 98.3 92 16 132/78 93 06/02 1414 97.3 83 20 116/74 92 Nasal 2.0L Cannula 06/02 0828 90 134/70 06/02 0927 90 134/70 06/02 0856 96 Nasal 1.0L Cannula 06/02 799 96 Room Air 06/02 0639 97.9 80 20 138/72 93 Nasal 1.0L Cannula 06/02 0000 94 Nasal 2.0L Cannula 06/01 2209 98.0 93 22 120/70 91 Intake & Output 06/02 1600 06/02 0806/02 0000 06/01 1600 06/01 0000 Intake Total 750 600 850 0 Output Total 2000 250 0 Balance -1250 350 850 0 Intake, IV 250 Intake, Oral 750 600 600 0 Output, Urine 2000 250 0 Patient 400 lb 420 lb Weight Weight Estimated Standing Scale Measurement Method Physical Exam: General: WD/obese female in NAD; alert and oriented x 3 Neck: no JVD, no carotid bruit Heart: irregularly irregular Lungs: decreased air movement bilaterally Abdomen: soft, obese, NT, +ve bowel sounds Extremities: 1+ leg edema bilaterally with warmth and erythema of the RLE Assessment/Plan Assessment/Plan * Patient has some dependent edema. Improved with Lasix. Continue at 40mg IV BID for one more day and then change to oral Lasix. * Agree with obtaining a sleep study as an outpatient followed by CPAP therapy if appropriate. * There is concern for a possible RLE cellulitis with a sore surrounded by erythma. Consider antibiotics. Continue telemetry? Yes
[2017-06-03 06:03] VITALS: BP 118/78
--- NOTE | 2017-06-03 07:36 | PN- Housestaff ---
See Addendum Subjective Follow-up For: COPD Exacerbation A.fibrillation LE Edema Tele-Events Since Last Visit: Atrial fibrillation Subjective: Patient was seen and examined today. Patient states that her breathing has improved. Patient is no longer having abdominal discomfort today. Patient's lower extremity swelling has decreased. Patient reports continued cough and chest congestion with no sputum production. Patient states her dry eyes, dry mouth, dry skin has improved with the artificial drops, glycerin mild spray, Lubriderm lotion. Patient denies any chest pain, palpitations, fever/chills, nausea/vomiting, constipation/diarrhea. No acute events overnight. Review of Systems Constitutional: Reports: no symptoms. Cardiovascular: Reports: peripheral edema. Respiratory: Reports: see HPI. Gastrointestinal: Reports: see HPI. Genitourinary: Reports: no symptoms. Musculoskeletal: Reports: no symptoms. Skin: Reports: see HPI. Neurological/Psychological: Reports: no symptoms. Hematologic/Endocrine: Reports: no symptoms. Immunologic/Allergic: Reports: no symptoms. Objective Last 24 Hrs of Vital Signs/I&O Vital Signs Date Time Temp Pulse Resp B/P B/P Pulse O2 O2 Flow FiO2 Mean Ox Delivery Rate 06/03 1507 98.2 95 20 122/74 90 Room Air 06/03 1311 97 Room Air 06/03 0926 90 124/70 06/03 0922 100 124/70 06/03 0800 91 Room Air 06/03 0603 98.0 93 20 118/78 94 /08 0000 Nasal 1.0L Cannula 06/02 2144 98.3 92 16 132/78 93 Intake & Output 06/03 1600 08 0800 02/08 0000 Intake Total 720 380 Output Total 1300 400 200 Balance -580 -400 180 Intake, Oral 720 380 Output, Urine 1300 400 200 Physical Exam General Appearance: Alert, Oriented X3, Cooperative Other Physical Findings: General Appearance: Alert, Oriented X3, Cooperative HEENT: Atraumatic, PERRLA, EOMI, Mucous Membr. moist/pink Cardiovascular: Normal S1, Normal S2, irregular rate Lungs: diffuse expiratory wheezing bilaterally and coarse breath sounds Abdomen: Normal Bowel Sounds, Soft, No Tenderness Extremities: No Clubbing, No Cyanosis, No Tenderness/Swelling, bilateral lower extremity edema 3+ with a small nonerythematous wheeping wound on the right dang covered with dressing Vascular: Pulses Symmetrical Current Medications: Current Medications Sig/Eduardo Start time Last Medication Dose Route Stop Time Status Admin Albuterol Sulfate 3 ML EVERY 4 HRS/AWAKE 06/01 1999 AC 06/03 INH 1308 Albuterol Sulfate 2 PUF Q4P PRN 05/31 2315 AC INH Amiodarone HCl 200 MG DAILY 06/01 1000 AC 06/03 PO 0922 Artificial Tears 2 GTT 4 TIMES/DAY 06/02 1930 AC 06/03 OPH 1640 Atenolol 25 MG DAILY 06/01 1000 AC 06/03 PO 0926 Azithromycin 500 MG Q24H 06/01 1999 AC 06/02 Dextrose/Water 250 ML IV 2127 Budesonide/ 2 PUF BID 06/01 1000 AC 06/03 Formoterol Fumarate INH 0924 Cholecalciferol 400 IU DAILY 06/03 1103 AC 06/03 PO 1355 Furosemide 40 MG DAILY 06/03 1000 CAN PO Furosemide 40 MG 7:30 AM, & 4:30 PM 06/03 0830 AC 06/03 IV 1639 Glycerin 2 SPRAY Q2P PRN 06/02 1930 AC 06/02 PO 2128 Glycerin/Mineral Oil 1 NAIDA TID PRN 06/02 1930 AC 06/02 TOP 2128 Guaifenesin 600 MG Q12 06/01 1000 AC 06/03 PO 0921 Influenza Virus 0.5 ML .STK-MED ONE 06/03 0916 DC Vaccine IM 06/03 0917 Letrozole 2.5 MG DAILY 06/01 1000 AC 06/03 PO 0922 Levothyroxine Sodium 0.088 MG DAILY AC 06/01 0700 AC 06/03 PO 0607 Multivitamins 1 TAB DAILY 06/03 1115 AC 06/03 PO 1355 Prednisone 60 MG DAILY 06/02 1000 AC 06/03 PO 0920 Rivaroxaban 20 MG DAILY 06/01 1000 AC 06/03 PO 0920 Sertraline HCl 25 MG DAILY 06/01 1000 AC 06/03 PO 0925 Tiotropium [place] 1 PUF DAILY 06/01 1000 AC 06/03 INH 0924 Last 24 Hrs of Lab/Sukumar Results Last 24 Hrs of Labs/Mics: Laboratory Tests 06/03/17 0715: Anion Gap 13, Estimated GFR 56 L, BUN/Creatinine Ratio 28.0 H Assessment/Plan Assessment: Patient is a morbidly obese 61 y/o female with PMH signficant for COPD, HTN, Hypothyroidism, breast cancer currently on letrozole with a right Port-A-Cath, Atrial fibrillation on Xarelto presenting with chief complaint of dyspnea at rest and on exertion, productive cough, fever and chills and worsening bilateral lower extremity swelling. On admission patient was noted to have bilateral lower extremity edema, wheezing heard on ausculation, requiring 2L NC oxygen saturating in the lows 90s and an elevated proBNP (double of baseline). Patient's CXR was negative for acute findings. Patient's EKG showed atrial fibrillation. Trops were negative. Patient had an elevated d-dimer. Patient in the ED received IV Lasix, IV steroids and supplemental oxygen with improvement in her breathing and shortness of breath. Patient today continued to have improvement in breathing now off oxygen. Patient switched to PO prednisone and PO azithromycin. Patient is no longer bring up sputum. Spoke to patient today about CPAP. Patient states she previously had issues with insurance and her CPAP machine was not covered which is the reason behind her noncompliance. Spoke to case management. They will work with patient to see if this is still an issue now. Problem list 1. COPD exacerbation 2. Possible CHF exacerbation 3. History of A. fib, breast cancer with Right Port-A-Cath, hypothyroidism, hypertension 4. Likely DIONNE Plan -Admit to telemetry -Continuous telemetry monitoring -Discontinued IV Solu-Medrol 40 mg twice a day -Started on PO prednisone -Continue Lasix IV 40mg BID. We will switch to by mouth Lasix tomorrow. -Continue mucinex -Continue azithromycin - switched from IV to PO -TRC/nebs -Echo pending -Cardiology and pulmonology on board. Appreciate recommendations -Patient's oncologist Dr. Lionel Harrison has been made aware of this admission -continue home medications: xarelto, letrozole, atenolol, amiodarone, levothyroxine Diet: Heart healthy diet DVT prophylaxis: Xarelto and ALPS Code: Full code Dispo: upon discharge patient should follow up with pulmonology for sleep study and PFTs Problem List: 1. COPD exacerbation 2. Morbid obesity 3. Fluid overload Pain Ratin Pain Location: n/a Pain Goal: Remain pain free Pain Plan: n/a Tomorrow's Labs & Rationales: bep - on lasix
--- NOTE | 2017-06-03 10:28 | PN- Pulmonary ---
Subjective HPI/Critical Care Issues: Patient is comfortable on room air the remains dyspneic on exertion Objective Current Medications: Current Medications Sig/Eduardo Start time Last Medication Dose Route Stop Time Status Admin Albuterol Sulfate 3 ML EVERY 4 HRS/AWAKE 06/01 1999 AC 06/02 INH 2007 Albuterol Sulfate 2 PUF Q4P PRN 05/31 2315 AC INH Amiodarone HCl 200 MG DAILY 06/01 999 AC 06/03 PO 0922 Artificial Tears 2 GTT 4 TIMES/DAY 06/02 193 AC 06/03 OPH 0924 Atenolol 25 MG DAILY 06/01 1000 AC 06/03 PO 0926 Azithromycin 500 MG Q24H 06/01 1999 AC 06/02 Dextrose/Water 250 ML IV 2127 Budesonide/ 2 PUF BID 06/01 1000 AC 06/03 Formoterol Fumarate INH 0924 Furosemide 40 MG DAILY 06/03 1000 CAN PO Furosemide 40 MG 7:30 AM, & 4:30 PM 06/03 0830 AC 06/03 IV 0921 Glycerin 2 SPRAY Q2P PRN 06/02 1930 AC 06/02 PO 2128 Glycerin/Mineral Oil 1 NAIDA TID PRN 06/02 1930 AC 06/02 TOP 2128 Guaifenesin 600 MG Q12 06/01 1000 AC 06/03 PO 0921 Letrozole 2.5 MG DAILY 06/01 1000 AC 06/03 PO 0922 Levothyroxine Sodium 0.088 MG DAILY AC 06/01 0700 AC 06/03 PO 0607 Prednisone 60 MG DAILY 06/02 1000 AC 06/03 PO 0920 Rivaroxaban 20 MG DAILY 06/01 1000 AC 06/03 PO 0920 Sertraline HCl 25 MG DAILY 06/01 1000 AC 06/03 PO 0925 Tiotropium [place] 1 PUF DAILY 06/01 1000 AC 06/03 INH 0924 Vital Signs & I&O Last 24 Hrs of Vitals and I&O: Vital Signs Date Time Temp Pulse Resp B/P B/P Pulse O2 O2 Flow FiO2 Mean Ox Delivery Rate 06/03 925 90 124/70 06/03 921 100 124/70 06/03 602 98.0 93 20 118/78 94 / 0000 Nasal 1.0L Cannula 06/02 2144 98.3 92 16 132/78 93 06/02 1600 Nasal 1.0L Cannula 06/02 1414 97.3 83 20 116/74 92 Nasal 2.0L Cannula Intake & Output 06/03 1600 06/03 0800 02/ 0000 Intake Total 380 Output Total 400 200 Balance -400 180 Intake, Oral 380 Output, Urine 400 200 Room air oxygen saturation 91% exam for chest shows diminished breath sounds are no wheezes or crackles cardiac exam shows regular S1 and S2 without murmurs there is persistent lower extremity edema likely related to venous insufficiency and sedentary dependent position of her legs Impression/Plan Impression/Plan Impression/Plan: 61-year-old morbidly obese woman over 47-[id number] smoking history admitted with exacerbation of COPD and hypoxic respiratory failure. She is clinically improved. Her sputum is rejected for squamous cells oral medications and anticipate discharge tomorrow. Assess oxygen saturations with ambulation Recommendations: Sputum culture. DC IV steroids begin oral prednisone She Has been counseled regarding smoking cessation. Mild negative fluid balance. Taper FiO2 saturations allow. Patient will need outpatient pulmonary function testing and nocturnal polysomnography. No further pulmonary suggestions
--- NOTE | 2017-06-03 11:39 | Patient Discharge Instructions ---
Discharge Instructions General Discharge Information You were seen/treated for: COPD Exacerbation Lower leg swelling Special Instructions: 1. Please follow up with your can top setter within 1 week of discharge 2. Please follow up with the physical director (Dr. Chan) in the next 1-2 weeks. Please call to make an appointment 3. Please follow up with your pcp within 1 week of discharge. 4. Please note the medication changes that have been made and take as prescribed. 5. Please weigh yourself daily in the morning prior to eating breakfast and after you have used the bathroom. If your weight has increased by 3 pounds please call your doctor as your medication may need to be adjuted. Diet Continue normal diet: No Recommended Diet: Heart Healthy Activity Full Activity/No Limits: No Activity Self Limited: Yes Acute Coronary Syndrome Inclusion Criteria At DC or during hospital stay patient has or had the following: ACS DIAGNOSIS No Discharge Core Measures Meds if any: Prescribed or Continued at Discharge Meds if any: NOT Prescribed or Continued at Discharge Congestive Heart Failure Inclusion Criteria At DC or during hospital stay patient has or had the following: CHF DIAGNOSIS No Discharge Core Measures Meds if any: Prescribed or Continued at Discharge Meds if any: NOT Prescribed or Continued at Discharge Cerebrovascular accident Inclusion Criteria At DC or during hospital stay patient has or had the following: CVA/TIA Diagnosis No Discharge Core Measures Meds if any: Prescribed or Continued at Discharge Meds if any: NOT Prescribed or Continued at Discharge Venous thromboembolism Inclusion Criteria VTE Diagnosis No VTE Type NONE VTE Confirmed by (Test) NONE Discharge Core Measures - Per Current guidelines, there needs to be overlap - treatment for the first 5 days of Warfarin therapy. - If discharged on Warfarin prior to 5 days of - overlap therapy, the patient will need to be - assessed for post discharge needs including - *Post discharge parental anticoagulation - *Warfarin and/or parental anticoagulation education - *Follow up date to check INR post discharge At least 5 days overlap therapy as Inpatient No Meds if any: Prescribed or Continued at Discharge Note: Overlap Therapy is Warfarin and Anticoagulant Meds if any: NOT Prescribed or Continued at Discharge
[2017-06-03 15:07] VITALS: BP 122/74
--- NOTE | 2017-06-03 17:20 | ECHOCARDIOGRAM REPORT ---
RAE AGUERO Age: 61 : 1955 Gender: F Exam Date: 06/02/2017 19:49 Exam Location: [place] Ht (in): 68 Wt (lb): 400 BSA: 3.07 BP: 116 / 74 Ordering Physician: Hipolito Beach MD Referring Physician: Mason Gallo MD, PhD Technologist: Rody Tadeo [facility] Room Number: 180-02 Indications: PULMONARY HYPERTENSION Rhythm: Technical Quality: FINDINGS Left Ventricle Right Ventricle Right Atrium Left Atrium Mitral Valve Aortic Valve Tricuspid Valve Pulmonic Valve Pericardium Great Vessels CONCLUSIONS A limited study with echo contrast to assess for regional wall motion abnormalities and overall EF shows no wall motion abnormalities and a visually estimated EF of 55%. A measured EF was not done. Mason Gallo M.D. (Electronically Signed) Final Date: 03 June 2017 17:19 MEASUREMENTS (Male / Female) Normal Values
--- NOTE | 2017-06-03 17:32 | PN- Cardiology ---
Subjective Subjective: * Patient still has shortness of breath with wheezing and orthopnea. No chest discomfort. * Normal EF of echo. Objective Vital Signs and I&Os Vital Signs Date Time Temp Pulse Resp B/P B/P Pulse O2 O2 Flow FiO2 Mean Ox Delivery Rate 06/03 1507 98.2 95 20 122/74 90 Room Air 06/03 1311 97 Room Air 06/03 0926 90 124/70 06/03 0922 100 124/70 06/03 0800 91 Room Air 06/03 0603 98.0 93 20 118/78 94 06/03 0000 Nasal 1.0L Cannula 06/02 2144 98.3 92 16 132/78 93 Intake & Output 06/03 1600 06/03 0800 06/03 0000 06/02 1600 06/02 0000 Intake Total 720 380 750 600 850 Output Total 1300 920 084 3518 250 Balance -580 -400 180 -1250 350 850 Intake, IV 250 Intake, Oral 720 380 750 600 600 Output, Urine 1300 991 706 9946 250 Patient 400 lb Weight Weight Estimated Measurement Method Physical Exam: General: WD/obese female in NAD; alert and oriented x 3 Neck: no JVD, no carotid bruit Heart: irregularly irregular Lungs: decreased air movement bilaterally with wheezing Abdomen: soft, obese, NT, +ve bowel sounds Extremities: 1+ leg edema bilaterally with warmth and erythema of the RLE Assessment/Plan Assessment/Plan * Patient has some dependent edema. Improved with Lasix. Change to Lasix 40mg PO BID tomorrow. * Agree with obtaining a sleep study as an outpatient followed by CPAP therapy if appropriate. Continue telemetry? Yes
[2017-06-03 22:10] VITALS: BP 118/90
[2017-06-04 05:53] VITALS: BP 118/88
--- NOTE | 2017-06-04 07:29 | PN- Housestaff ---
See Addendum Subjective Follow-up For: COPD exacerbation A.fibrillation LE Edema Tele-Events Since Last Visit: Atrial fibrillation heart rate of 84-112 Subjective: Patient was seen and examined today. Patient states that her breathing has improved however continues to complain of cough and mild wheezing. Patient denies any chest pain, palpitations, fever/chills, nausea/vomiting, constipation /diarrhea, hematuria/dysuria. Reports lower extremity swelling has improved. Denies any pain. Discussed with patient this morning about the importance of mitigating risk factors for recurrent COPD exacerbations including smoking cessation and to avoid secondhand smoking exposure. No acute events overnight. Review of Systems Constitutional: Reports: no symptoms. Cardiovascular: Reports: see HPI, edema. Respiratory: Reports: cough, short of breath, wheezing. Denies: sputum production. Gastrointestinal: Reports: no symptoms. Genitourinary: Reports: no symptoms. Musculoskeletal: Reports: no symptoms. Neurological/Psychological: Reports: no symptoms. Hematologic/Endocrine: Reports: no symptoms. Objective Last 24 Hrs of Vital Signs/I&O Vital Signs Date Time Temp Pulse Resp B/P B/P Pulse O2 O2 Flow FiO2 Mean Ox Delivery Rate 06/04 911 105 118/88 06/04 0912 105 118/88 06/04 0850 90 Room Air Room Air 06/04 0553 98.2 105 20 118/88 92 06/03 2210 98.3 92 18 118/90 93 06/03 2138 Room Air 06/03 1837 91 Room Air 06/03 1507 98.2 95 20 122/74 90 Room Air 06/03 1311 97 Room Air Intake & Output 06/04 1600 06/04 0800 06/04 0000 Intake Total 650 240 Output Total 700 350 Balance -50 -110 Intake, Oral 650 240 Output, Urine 700 350 Physical Exam General Appearance: Alert, Oriented X3, Cooperative, No Acute Distress HEENT: Atraumatic, Mucous Membr. moist/pink Cardiovascular: Normal S1, Normal S2, irregular rate Lungs: scattered mild wheezing bilaterally improved from previous day Abdomen: Normal Bowel Sounds, Soft, No Tenderness Extremities: bilateral lower extremity edema 2-3+ Current Medications: Current Medications Sig/Eduardo Start time Last Medication Dose Route Stop Time Status Admin Acetaminophen 650 MG ONCE ONE 06/04 1015 DC 06/04 PO 06/04 1016 1031 Albuterol Sulfate 3 ML EVERY 4 HRS/AWAKE 06/01 1999 AC 06/04 INH 1135 Albuterol Sulfate 2 PUF Q4P PRN 05/31 2315 AC INH Amiodarone HCl 200 MG DAILY 06/01 1000 AC 06/04 PO 0912 Artificial Tears 2 GTT 4 TIMES/DAY 06/02 1930 AC 06/04 OPH 0913 Atenolol 25 MG DAILY 06/01 1000 AC 06/04 PO 0912 Azithromycin 250 MG DAILY 06/04 1000 AC 06/04 PO 0914 Azithromycin 500 MG Q24H 06/01 1999 DC 06/02 Dextrose/Water 250 ML IV 2127 Budesonide/ 2 PUF BID 06/01 1000 AC 06/04 Formoterol Fumarate INH 09 Bumetanide 1 MG 7:30 AM, & 4:30 PM 06/04 1630 AC PO Cholecalciferol 400 IU DAILY 06/03 1103 AC 06/04 PO 0912 Furosemide 40 MG 7:30 AM, & 4:30 PM 06/04 0730 DC 06/04 PO 0647 Furosemide 40 MG 7:30 AM, & 4:30 PM 06/03 0830 DC 06/03 IV 1639 Glycerin 2 SPRAY Q2P PRN 06/02 1930 AC 06/02 PO 2128 Glycerin/Mineral Oil 1 NAIDA TID PRN 06/02 1930 AC 06/02 TOP 2128 Guaifenesin 600 MG Q12 06/01 1000 AC 06/04 PO 0912 Letrozole 2.5 MG DAILY 06/01 1000 AC 06/04 PO 0914 Levothyroxine Sodium 0.088 MG DAILY AC 06/01 0700 AC 06/04 PO 0625 Multivitamins 1 TAB DAILY 06/03 1115 AC 06/04 PO 0912 Prednisone 60 MG DAILY 06/02 1000 AC 06/04 PO 0912 Rivaroxaban 20 MG DAILY 06/01 1000 AC 06/04 PO 0912 Sertraline HCl 25 MG DAILY 06/01 1000 AC 06/04 PO 0912 Tiotropium [place] 1 PUF DAILY 06/01 1000 AC 06/04 INH 0913 Last 24 Hrs of Lab/Sukumar Results Last 24 Hrs of Labs/Mics: Laboratory Tests 06/04/17 0745: Anion Gap 12, Estimated GFR 50 L, BUN/Creatinine Ratio 27.3 H Assessment/Plan Assessment: Patient is a morbidly obese 61 y/o female with PMH signficant for COPD, HTN, Hypothyroidism, breast cancer currently on letrozole with a right Port-A-Cath, Atrial fibrillation on Xarelto presenting with chief complaint of dyspnea at rest and on exertion, productive cough, fever and chills and worsening bilateral lower extremity swelling. On admission patient was noted to have bilateral lower extremity edema, wheezing heard on ausculation, requiring 2L NC oxygen saturating in the lows 90s and an elevated proBNP (double of baseline). Patient's CXR was negative for acute findings. Patient's EKG showed atrial fibrillation. Trops were negative. Patient had an elevated d-dimer. Patient in the ED received IV Lasix, IV steroids and supplemental oxygen with improvement in her breathing and shortness of breath. Patient today continued to have improvement in breathing now off oxygen. Patient however continues to require DuoNeb treatments during this hospitalization and would benefit from nebulizer treatments at home. Patient requires a nebulizer machine and albuterol vials for home. Patient switched to PO prednisone. Patient is to continue a long steroid taper. Patient's lasix was discontinued today and patient will be started on bumex as its bioavailability is higher than lasix and will be more effective in this patient. Patient is no longer bring up sputum. Patient will go home on prednisone taper and she is to continue using her inhalers. Patient is to follow-up with cardiology and pulmonology. Patient will be set up for sleep study and PFTs by her orchid worker. Patient educated on risk factors for COPD exacerbations and counseled on the importance of smoking cessation and avoiding secondhand smoke exposure. Patient was given a flu vaccine prior to discharge. Problem list 1. COPD exacerbation 2. Fluid overload 3. History of A. fib, breast cancer with Right Port-A-Cath, hypothyroidism, hypertension 4. Likely DIONNE Plan -Admitted to telemetry -Continuous telemetry monitoring -Continue PO prednisone taper starting at 60mg BID with taper of 10mg every 3 days -Started on bumex 1mg PO BID -Continue mucinex -Discontinued azithromycin -TR/[facility] -Cardiology and pulmonology on board. Appreciate recommendations -Patient's oncologist Dr. Lionel Harrison has been made aware of this admission -continue home medications: xarelto, letrozole, atenolol, amiodarone, levothyroxine Diet: Heart healthy diet DVT prophylaxis: Xarelto and ALPS Code: Full code Dispo: Discharge today with close follow up with cardiology and with pulmonology for sleep study and PFTs Discharge with bumex, nebulizer machine, albuterol vials, prednisone taper, and renewal of her inhalers. Problem List: 1. COPD (chronic obstructive pulmonary disease) Pain Ratin Pain Location: n/a Pain Goal: Remain pain free Pain Plan: tylenol PRN Tomorrow's Labs & Rationales: none- discharge home today
--- NOTE | 2017-06-04 07:31 | Discharge Summary ---
Visit Information Visit Dates Admission Date: 05/31/17 Discharge Date: 06/04/17 Hospital Course Course Attending Physician: Laureano Dean MD Primary Care Physician: Mason Grimes MD Hospital Course: Patient is a morbidly obese 61 y/o female with PMH signficant for COPD, HTN, Hypothyroidism, breast cancer currently on letrozole with a right Port-A-Cath, Atrial fibrillation on Xarelto presenting with chief complaint of dyspnea at rest and on exertion, productive cough, fever and chills and worsening bilateral lower extremity swelling. On admission: Vitals: BP max 99.7, pulse 96, RR 22, blood pressure 119/74, saturating 97% on 2 L NC Physical exam pertinent for a morbidly obese female in mild respiratory stress with significant bilateral lower extremity edema and lung exam revealing bilateral diffuse wheezing and crackles Labs: WBC 8.3, hemoglobin 13.7, hematocrit 41.6, platelets 186, neutrophils 76%, sodium 144, potassium 4.5, chloride 103, bicarbonate 30, BUN 16, creatinine 0.8, glucose 94, calcium 9.0, lactate 1.3, LFT unremarkable, proBNP 2480, troponin less than 0.01, influenza negative requiring 2L NC oxygen saturating in the lows 90s and an elevated proBNP (double of baseline). EKG showed atrial fibrillation. Imaging: CXR was negative for acute findings. Patient's Patient in the ED received IV Lasix, IV steroids and supplemental oxygen with improvement in her breathing and shortness of breath. Patient was admitted to the telemetry floor for management of followin. COPD exacerbation Patient was started on IV Solu-Medrol and IV azithromycin with transitioned to PO prednisone 60mg. Patient was seen by pulmonology. Patient received DuoNeb treatments and Mucinex with improvement in her breathing. Patient was tapered off oxygen prior to discharge. * Patient discharged on a slow prednisone taper * Patient to follow-up with pulmonology outpatient for PFTs * Patient given prescription for nebulizer machine and albuterol vials * Patient should continue use of her inhaled bronchodilators 2. Lower extremity edema likely secondary to obstructive sleep apnea and right heart failure Patient was started on IV Lasix and switched to Bumex 1 mg twice a day prior to discharge. Patient seen by cardiology and had an echo showing LVEF of 60% with limited views. Echo with contrast was repeated showing no regional wall abnormalities. Echo showed right ventricular systolic pressure of 35 mmHg. Patient's edema and breathing improved with diuretics. Patient's creatinine slightly increased to 1.1 prior to discharge. Patient meets the STOP-BANG criteria for DIONNE and should undergo repeat polysomnography for evaluation for CPAP use which she will likely need and benefit from. * Patient to schedule appointment with pulmonology for sleep study and CPAP * Patient to continue Bumex 1 mg twice a day * Patient should have a repeat BEP with her PCP to monitor creatinine and electrolytes on loop diuretic * Patient should follow-up with her sales representative wire rope 3. History of A. fib, breast cancer with Right Port-A-Cath, hypothyroidism, hypertension Patient continued on her home medications: xarelto, letrozole, atenolol, amiodarone, levothyroxine Diet: Heart healthy diet DVT prophylaxis: Xarelto Code: Full code Dispo: upon discharge patient should follow up with pulmonology for sleep study and PFTs Discharge with nebulizer machine, albuterol vials, prednisone taper, and renewal of her inhalers. Allergies: Coded Allergies: NO KNOWN ALLERGIES (07/05/13) Pertinent Lab Results: SERVICE DATE: 05/31/17 EXAM TYPE: RAD - XRY-PORTABLE CHEST XRAY EXAMINATION: XR PORTABLE CHEST CLINICAL INFORMATION: Cough COMPARISON: Multiple previous chest x-rays with the most recent chest x-ray of 11/22/2016. TECHNIQUE: Portable frontal view of the chest was obtained. FINDINGS: Somewhat limited evaluation by technique and patient's body habitus. A right-sided CT compatible Port-A-Cath is in place with the tip terminating over the expected location of the superior cavoatrial junction. No evidence of pneumothorax. The lungs are mildly hypoexpanded. No definite evidence of focal consolidation. No pulmonary edema or significant pleural effusions. The cardiomediastinal silhouette is unchanged. A square radiopaque density projecting over the lower thoracic spine in the midline is likely artifactual. Recommend clinical correlation. IMPRESSION: No convincing radiographic evidence of pneumonia. No acute pulmonary process. SERVICE DATE: 06/01/17- EXAM TYPE: CARD - ECHOCARDIOGRAM RAE AGUERO Age: 61 : 1955 Gender: F Exam Date: 06/01/2017 15:35 Exam Location: [place] Ht (in): 68 Wt (lb): 420 BSA: 3.15 BP: 119 / 56 Ordering Physician: Ajay Lake MD Referring Physician: Mason Gallo MD, PhD Technologist: Rody Tadeo [facility] Room Number: [id number] Indications: HEART FAILURE Rhythm: Atrial fibrillation Technical Quality: poor FINDINGS Left Ventricle Normal left ventricular size with moderate left ventricular hypertrophy. Normal systolic function with no obvious regional wall motion abnormalitie based on limited views. The ejection fraction is visually estimated at 60%. Right Ventricle The right ventricle is normal in size and function. Right Atrium The right atrium is normal in size. Left Atrium The left atrium is moderately enlarged. The interatrial septum is intact. Mitral Valve The mitral valve demonstrates mild anterior annular calcification with normal function. There is mild mitral regurgitation. Aortic Valve Structurally normal aortic valve without significant sclerosis or stenosis. There is trace aortic regurgitation. Tricuspid Valve The tricuspid valve is normal in structure and function. There is mild tricuspid regurgitation. Pulmonary artery systolic pressure is normal at 33mmHg. Pulmonic Valve Structurally normal pulmonic valve. There is trace pulmonic regurgitation. Pericardium Normal pericardium without effusion. No pleural effusion. Great Vessels Normal aortic root dimension. The aortic arch and great vessels are well seen and are normal. CONCLUSIONS 1. Normal EF of 60% based on limited views. Recommend repeat echo with contrast. 2. Moderate left ventricular hypertrophy. 3. Moderate left atrial enlargement. 4. Mild mitral regurgitation. 5. Mild tricuspid regurgitation. 6. Trace aortic regurgitation. 7. Trace pulmonic regurgitation. Mason Gallo M.D. (Electronically Signed) Final Date: 02 June 2017 07:24 MEASUREMENTS (Male / Female) Normal Values 2D ECHO LV Diastolic Diameter PLAX 4.2 cm 4.2 - 5.9 / 3.9 - 5.3 cm LV Systolic Diameter PLAX 2.7 cm 2.1 - 4.0 cm LV Fractional Shortening PLAX 35.7 % 25 - 46 % LV Ejection Fraction 2D Teich 65.6 % IVS Diastolic Thickness 1.6 cm LVPW Diastolic Thickness 1.6 cm LV Relative Wall Thickness 0.8 RV Internal Dim ED PLAX 3.4 cm 1.9 - 3.8 cm LVOT Diameter 2.2 cm Aortic Root Diameter 2.7 cm LA Systolic Diameter LX 4.8 cm 3.0 - 4.0 / 2.7 - 3.8 cm LA Volume 59.0 cm 18 - 58 / 22 - 52 cm Ascending Aorta Diameter 3.4 cm DOPPLER AV Peak Velocity 120.0 cm/s AV Peak Gradient 5.8 mmHg AV Mean Velocity 82.9 cm/s AV Mean Gradient 3.0 mmHg AV Velocity Time Integral 24.1 cm LVOT Peak Velocity 95.5 cm/s LVOT Peak Gradient 3.6 mmHg LVOT Mean Velocity 65.4 cm/s LVOT Mean Gradient 2.0 mmHg LVOT Velocity Time Integral 19.2 cm LVOT Stroke Volume 73.0 cm AV Area Cont Eq vti 3.0 cm AV Area Cont Eq pk 3.0 cm MV Peak Velocity 116.0 cm/s MV Peak Gradient 5.4 mmHg MV Mean Velocity 60.5 cm/s MV Mean Gradient 2.0 mmHg Mitral E Point Velocity 108.0 cm/s MV PHT Velocity 121.0 cm/s MV Deceleration Floyd 417.0 cm/s MV Pressure Half Time 87.1 ms MV Area PHT 2.5 cm MV Deceleration Time 155.0 ms TR Peak Velocity 274.0 cm/s TR Peak Gradient 30.0 mmHg Right Atrial Pressure 5.0 mmHg Pulmonary Artery Systolic Pressu 35.0 mmHg Right Ventricular Systolic Press 35.0 mmHg PV Peak Velocity 75.4 cm/s PV Peak Gradient 2.3 mmHg PV Mean Velocity 50.7 cm/s PV Mean Gradient 1.0 mmHg PV Velocity Time Integral 11.3 cm LV E' Lateral Velocity 16.4 cm/s Mitral E to LV E' Lateral Ratio 6.6 LV E' Septal Velocity 12.5 cm/s Mitral E to LV E' Septal Ratio 8.6 SERVICE DATE: 06/02/17- EXAM TYPE: CARD - [id number] OR LIMITED CONCLUSIONS A limited study with echo contrast to assess for regional wall motion abnormalities and overall EF shows no wall motion abnormalities and a visually estimated EF of 55%. A measured EF was not done. Disposition Summary Disposition Principal Diagnosis: COPD exacerbation Additional Diagnosis: Lower extremity edema, obstructive sleep apnea Discharge Disposition: home health services Discharge Instructions General Discharge Information Code Status: Full Code Patient's Diet: Heart healthy Patient's Activity: Self-limited Follow-Up Instructions/Appts: 1. Please follow up with your sales representative wire rope within 1 week of discharge 2. Please follow up with the watch crystal cutter (Dr. Chan) in the next 1-2 weeks. Please call to make an appointment 3. Please follow up with your pcp within 1 week of discharge. 4. Please note the medication changes that have been made and take as prescribed. 5. Please weigh yourself daily in the morning prior to eating breakfast and after you have used the bathroom. If your weight has increased by more than 3 pounds please call your doctor as your medication may need to be adjusted. Medications at Discharge Discharge Medications: Stop taking the following medications: Furosemide (Furosemide) 40 MG TABLET ORAL DAILY Amoxicillin (Amoxicillin) 875 MG TABLET ORAL TWICE DAILY Qty = 20 Sulfamethoxazole/Trimethoprim (Bactrim Ds Tablet) 800 MG-160 MG TABLET ORAL TWICE DAILY Qty = 20 Oxycodone HCl/Acetaminophen (Percocet 5-325 MG Tablet) 5 MG-325 MG TABLET ORAL THREE TIMES DAILY as needed for pain Qty = 15 Continue taking these medications: Levothyroxine Sodium (Synthroid) 88 MCG TABLET 1 Tablet ORAL DAILY Comments: Last Taken:06/04/17 Time:624 Rivaroxaban (Xarelto) 20 MG TABLET 1 Tablet ORAL DAILY Instructions: with food Comments: Last Taken:06/04/17 Time:911 Atenolol (Atenolol) 25 MG TABLET 1 Tablet ORAL DAILY Comments: Last Taken:06/04/17 Time:911 Amiodarone (Cordarone) 200 MG TABLET 1 Tablet ORAL DAILY Comments: Last Taken:06/04/17 Time:911 Letrozole (Femara) 2.5 MG TABLET 1 Tablet ORAL DAILY Comments: Last Taken:06/04/17 Time:913 Sertraline HCl (Sertraline HCl) 25 MG TABLET 1 Tablet ORAL DAILY Qty = 30 Comments: Last Taken:06/04/17 Time:911 Acetaminophen (Tylenol Extra Strength) 500 MG TABLET 2 Tablet ORAL as needed for PAIN Comments: NOT GIVEN AT HOSPITAL Start taking the following new medications: Prednisone (Prednisone) 10 MG TABLET 0 ORAL SEE INSTRUCTIONS Qty = 51 No Refills Instructions: See instructions below Comments: Last Taken:06/04/17 Time:912 Take 6 tabs on 06/05 Take 5 tabs on 06/06-06/08 Take 4 tabs on 06/09-06/11 Take 3 tabs on 06/12-06/14 Take 2 tabs on 06/15-06/17 Take 1 tab on 06/18-06/20 Then Stop. Bumetanide (Bumetanide) 1 MG TABLET 1 Tablet ORAL 7:30AM & 4:30PM Qty = 60 No Refills Instructions: . Comments: NOT GIVEN AT HOSPITAL Albuterol Sulfate (Albuterol Sulfate) 2.5 MG/3 ML (0.083 %) VIAL.NEB 3 Milliliters Inhale through mouth EVERY 4 HRS WHILE AWAKE Qty = 50 Refills = 5 Comments: Last Taken:06/04/17 Time:1230 The following medications have been changed: Old: Tiotropium [place] (Spiriva) 18 MCG CAP.W.DEV 1 Capsule Inhale through mouth DAILY Qty = 30 New: Tiotropium [place] (Spiriva) 18 MCG CAP.W.DEV 1 Capsule Inhale through mouth DAILY Qty = 30 Instructions: . Comments: Last Taken:06/04/17 Time:09 Old: Budesonide/Formoterol Fumarate (Symbicort 160-4.5 Mcg Inhaler) 10.2 GM HFA.AER.AD 2 Puff Inhale through mouth TWICE DAILY Qty = 1 New: Budesonide/Formoterol Fumarate (Symbicort 160-4.5 Mcg Inhaler) 10.2 GM HFA.AER.AD 2 Puff Inhale through mouth TWICE DAILY Qty = 1 Instructions: . Old: Albuterol Sulfate (Proair Hfa) 90 MCG HFA.AER.AD 2 Puff Inhale through mouth As Directed as needed for COPD Qty = 1 New: Albuterol Sulfate (Proair Hfa) 90 MCG HFA.AER.AD 2 Puff Inhale through mouth As Directed as needed for COPD Qty = 1 Instructions: . Comments: Last Taken:06/04/17 Time:09 Copies To: Cornelio MÉNDEZ,Mason Rodriguez Attending MD Review Statement Documenting Attending: Laureano Dean MD Other Findings: The patient was seen on the day of discharge and agree with the plan of care. She will need close follow up with taper of prednisone. Pulmonary will arrange outpatient sleep study and PFT's- she had prior sleep study that indicated she needs CPAP. She was discharged on Bumex instead of po lasix due to possible better bioavailability as she has gut edema. Weights and BEP should be monitored on this. Her weight issues will be addressed by her PCP.
--- NOTE | 2017-06-04 07:40 | PN- Student ---
Subjective Subjective: Follow up for : CHF No overnight events.Patient reports poor sleep due to being uncomfortable and needing multiple pillows.Patient is anxious to go home and see her grandkids.She says she can rest at home.She is concerned about her wheeze on exertion and congested chest.Reports that she is coughing and can hear the phlegm rattling in her chest but isnt coughing it up. Review of Systems Review of Systems Constitutional: Denies: chills, diaphoresis, fever. EENTM: Denies: nasal congestion, throat pain. Cardiovascular: Denies: chest pain, palpitations. Respiratory: Reports: cough, short of breath, wheezing. GI: Reports: no symptoms. Genitourinary: Reports: no symptoms. Musculoskeletal: Reports: no symptoms. Skin: Reports: dryness. Neurological/Psychological: Reports: no symptoms. Hematologic/Endocrine: Reports: no symptoms. Objective Objective: Vital Signs Date Time Temp Pulse Resp B/P B/P Pulse O2 O2 Flow FiO2 Mean Ox Delivery Rate 06/04 0850 90 Room Air Room Air 06/04 0553 98.2 105 20 118/88 92 06/03 2210 98.3 92 18 118/90 93 06/03 2138 Room Air 06/03 1837 91 Room Air 06/03 1507 98.2 95 20 122/74 90 Room Air 06/03 1311 97 Room Air 06/03 0926 90 124/70 06/03 0922 100 124/70 Intake & Output 06/04 1600 06/04 0800 06/04 0000 Intake Total 650 240 Output Total 700 350 Balance -50 -110 Intake, Oral 650 240 Output, Urine 700 350 Current Medications Sig/Eduardo Start time Last Medication Dose Route Stop Time Status Admin Albuterol Sulfate 3 ML EVERY 4 HRS/AWAKE 06/01 1999 AC 06/04 INH 0849 Albuterol Sulfate 2 PUF Q4P PRN 05/31 2315 AC INH Amiodarone HCl 200 MG DAILY 06/01 999 AC 06/03 PO 0922 Artificial Tears 2 GTT 4 TIMES/DAY 06/02 1930 AC 06/03 OPH 2121 Atenolol 25 MG DAILY 06/01 999 AC 06/03 PO 0926 Azithromycin 250 MG DAILY 06/04 999 AC PO Azithromycin 500 MG Q24H 06/01 1999 DC 06/02 Dextrose/Water 250 ML IV 212 Budesonide/ 2 PUF BID 06/01 1000 AC 06/03 Formoterol Fumarate INH 2116 Cholecalciferol 400 IU DAILY 06/03 1103 AC 06/03 PO 1355 Furosemide 40 MG 7:30 AM, & 4:30 PM 06/04 0730 AC 06/04 PO 0647 Furosemide 40 MG 7:30 AM, & 4:30 PM 06/03 0830 DC 06/03 IV 1639 Glycerin 2 SPRAY Q2P PRN 06/02 1930 AC 06/02 PO 2128 Glycerin/Mineral Oil 1 NAIDA TID PRN 06/02 1930 AC 06/02 TOP 2128 Guaifenesin 600 MG Q12 06/01 1000 AC 06/03 PO 2115 Influenza Virus 0.5 ML .STK-MED ONE 06/03 915 DC Vaccine IM 06/03 0917 Letrozole 2.5 MG DAILY 06/01 1000 AC 06/03 PO 0922 Levothyroxine Sodium 0.088 MG DAILY AC 06/01 0700 AC 06/04 PO 0625 Multivitamins 1 TAB DAILY 06/03 1115 AC 06/03 PO 1355 Prednisone 60 MG DAILY 06/02 1000 AC 06/03 PO 0920 Rivaroxaban 20 MG DAILY 06/01 1000 AC 06/03 PO 0920 Sertraline HCl 25 MG DAILY 06/01 1000 AC 06/03 PO 0925 Tiotropium [place] 1 PUF DAILY 06/01 1000 AC 06/03 INH 0924 Physical Exam General Appearance: Alert, Oriented X3, Cooperative HEENT: Atraumatic, PERRLA, Cardiovascular: Normal S1, Normal S2,irregular Lungs: diffuse expiratory wheezing bilaterally and coarse breath sounds Abdomen: Normal Bowel Sounds, Soft, No Tenderness Extremities: No Clubbing, No Cyanosis, , bilateral lower extremity edema 3+ with a small nonerythematous wheeping wound on the right dang Results Results: Laboratory Tests 06/04/17 0745: Anion Gap 12, Estimated GFR 50 L, BUN/Creatinine Ratio 27.3 H 06/03/17 0715: Anion Gap 13, Estimated GFR 56 L, BUN/Creatinine Ratio 28.0 H 06/02/17 0620: Anion Gap 9, Estimated GFR > 60, BUN/Creatinine Ratio 28.9 H Microbiology 06/01 1641 LOWER RESP: Respiratory Culture - CAN Cancelled: NUMBER OF SQUAMOUS CELLS INDICATES POOR QUALITY SPECIMEN 06/01 1641 LOWER RESP: Gram Stain - CAN Cancelled: NUMBER OF SQUAMOUS CELLS INDICATES POOR QUALITY SPECIMEN Limited ECHO for Pulmonary Hypertention A limited study with echo contrast to assess for regional wall motion abnormalities and overall EF shows no wall motion abnormalities and a visually estimated EF of 55%. A measured EF was not done. Assessment/Plan Assessment: Patient is a morbidly obese 61 y/o female with PMH signficant for COPD, HTN, Hypothyroidism, breast cancer currently on letrozole with a right Port-A-Cath, Atrial fibrillation on Xarelto presenting to the ED with chief complaint of dyspnea at rest and on exertion, productive cough, fever and chills and worsening bilateral lower extremity swelling. Patient in the ED received IV Lasix, IV steroids and supplemental oxygen with improvement in her breathing and shortness of breath. Problem List: COPD exacerbation Chf excerbation History of [place] Plan: COPD exacerbation: Patient is now off oxygen and now on room air with a pulse ox of 90%.Continues to have improvement in breathing but is not back to baseline.Patient still has expiratory wheezes and cough.Cough is no longer productive.Patient may benefit from a sleep study given her cormobities making DIONNE a likely possibility which may also have lead to her exacerbation.Patient had a prior positive sleep study but was unable to recieve a CPAP machine due to insurance issues. Admit to telemetry -Continuous telemetry monitoring -Discontinued IV Solu-Medrol 40 mg twice a day -Started on PO prednisone -Continue mucinex -Continue azithromycin - switched from IV to PO -TRC/nebs -appreciate cardiology and pulmonary reccomendations -patient's oncologist is aware of admission. -outpatient follow up for PFT's,polysomnography Chf excerbation Patient was admitted with bilateral swelling of both lower extremities and was started on IV lasix which has reduced the edema.Lower extremeties was noted to be dry and patient was given lubriderm to apply as needed. -IV lasix is converted to oral lasix 40mg BID Diet: Heart healthy diet DVT prophylaxis: Xarelto and ALPS Code: Full code
--- NOTE | 2017-06-04 08:15 | PN- Pulmonary ---
Subjective HPI/Critical Care Issues: Patient is comfortable on room air Objective Current Medications: Current Medications Sig/Eduardo Start time Last Medication Dose Route Stop Time Status Admin Albuterol Sulfate 3 ML EVERY 4 HRS/AWAKE 06/01 1999 AC 06/03 INH 2150 Albuterol Sulfate 2 PUF Q4P PRN 05/31 2315 AC INH Amiodarone HCl 200 MG DAILY 06/01 1000 AC 06/03 PO 0922 Artificial Tears 2 GTT 4 TIMES/DAY 06/02 1930 AC 06/03 OPH 2121 Atenolol 25 MG DAILY 06/01 1000 AC 06/03 PO 0926 Azithromycin 250 MG DAILY 06/04 1000 AC PO Azithromycin 500 MG Q24H 06/01 1999 DC 06/02 Dextrose/Water 250 ML IV 2127 Budesonide/ 2 PUF BID 06/01 1000 AC 06/03 Formoterol Fumarate INH 211 Cholecalciferol 400 IU DAILY 06/03 1103 AC 06/03 PO 1355 Furosemide 40 MG 7:30 AM, & 4:30 PM 06/04 0730 AC 06/04 PO 0647 Furosemide 40 MG DAILY 06/03 1000 CAN PO Furosemide 40 MG 7:30 AM, & 4:30 PM 06/03 0830 DC 06/03 IV 1639 Glycerin 2 SPRAY Q2P PRN 06/02 1930 AC 06/02 PO 2128 Glycerin/Mineral Oil 1 NAIDA TID PRN 06/02 1930 AC 06/02 TOP 2128 Guaifenesin 600 MG Q12 06/01 1000 AC 06/03 PO 2115 Influenza Virus 0.5 ML .STK-MED ONE 06/03 915 DC Vaccine IM 06/03 0917 Letrozole 2.5 MG DAILY 06/01 1000 AC 06/03 PO 0922 Levothyroxine Sodium 0.088 MG DAILY AC 06/01 0700 AC 06/04 PO 0625 Multivitamins 1 TAB DAILY 06/03 1115 AC 06/03 PO 1355 Prednisone 60 MG DAILY 06/02 1000 AC 06/03 PO 0920 Rivaroxaban 20 MG DAILY 06/01 1000 AC 06/03 PO 0920 Sertraline HCl 25 MG DAILY 06/01 1000 AC 06/03 PO 0925 Tiotropium [place] 1 PUF DAILY 06/01 1000 AC 06/03 INH 0924 Vital Signs & I&O Last 24 Hrs of Vitals and I&O: Vital Signs Date Time Temp Pulse Resp B/P B/P Pulse O2 O2 Flow FiO2 Mean Ox Delivery Rate 06/04 0453 98.2 105 20 118/88 92 06/03 2210 98.3 92 18 118/90 93 06/03 2138 Room Air 06/03 1837 91 Room Air 06/03 1507 98.2 95 20 122/74 90 Room Air 06/03 1311 97 Room Air 06/03 0926 90 124/70 06/03 0922 100 124/70 Intake & Output 06/04 1600 06/04 0800 06/04 0000 Intake Total 240 Output Total 400 350 Balance -400 -110 Intake, Oral 240 Output, Urine 400 350 Room air oxygen saturation 92% exam for chest shows diminished breath sounds are no wheezes cardiac exam shows regular S1 and S2 without murmurs there is persistent lower extremity edema though this appears reduced Impression/Plan Impression/Plan Impression/Plan: 61-year-old morbidly obese woman over 90-yqua-esdp smoking history admitted with exacerbation of COPD and hypoxic respiratory failure. She is clinically improved. Lower extremity edema persists and will not likely resolve with Lasix alone. Recommendations: Slow steroid taper recommended. Outpatient follow-up for PFTs and polysomnography. Discharge on Symbicort and Spiriva.
[2017-06-04] MEDS ORDERED: PREDNISONE10 M2 PO ×2 (09:03→11:25)
[2017-06-04] MEDS ORDERED: SPIRIVA18 MCG INH ×2 (09:03→11:25)
[2017-06-04] MEDS ORDERED: ALBUTEROL2.5 MG/3 M INH ×2 (09:22→11:25)
[2017-06-04] MEDS ORDERED: PROAIR HFA8.5 GM INH ×3 (09:22→11:25)
[2017-06-04] MEDS ORDERED: SYMBICORT 16010.2 GM INH ×2 (09:25→11:25)
[2017-06-04] MEDS ORDERED: BUMETANIDE1 M1 PO ×2 (09:25→11:25)
[2017-06-04 15:28] VITALS: BP 120/90
== END 2017-06-04 16:30 | disposition home health service (06) | DRG 190 ==
LOC: ERH 16:35 → ERHI 21:36 → ENRESERV 06-01 16:34 → ENTRNSPT 06-01 17:02 → CMPTRNSPT 06-01 17:04 → 1NO 06-01 17:19 → CMPTRNSPT 06-01 17:27 → 1NO 06-02 09:53 → ENPENDDIS 06-04 10:44 → ENTRNSPT 06-04 16:06 → EDTRNSPT 06-04 16:09 → EDTRNSPTSTS 06-04 16:09 → CMPTRNSPT 06-04 16:27 → 1NO 06-04 16:30
PROVIDERS: Physician Assistant; Student in an Organized Health Care Education/Training Program
DX: J44.1 Chronic obstructive pulmonary disease with (acute) exacerbation (principal); J96.91 Respiratory failure, unspecified with hypoxia; Z68.44 Body mass index [BMI] 60.0-69.9, adult; I50.810 Right heart failure, unspecified; I11.0 Hypertensive heart disease with heart failure; C50.919 Malignant neoplasm of unspecified site of unspecified female breast; E66.01 Morbid (severe) obesity due to excess calories; I48.2 Chronic atrial fibrillation; G47.33 Obstructive sleep apnea (adult) (pediatric); E03.9 Hypothyroidism, unspecified; Z79.01 Long term (current) use of anticoagulants; F17.210 Nicotine dependence, cigarettes, uncomplicated
CPT/HCPCS: 1NSP; ERO; 36415; 71045; 82436; 87040; 87070; 87804; 87804-59; 93005; 93010; 93306; 93308; 93321; 96374; 96375; J0456; J1940; J2920; J2930; J3490; J7060; Q2036; Q9957

== ENCOUNTER 2017-12-02 12:23 | Emergency (ER) | payer OTHER ==
[~2017-12-02 12:23] MED LIST changes: +ALBUTEROL2.5 MG/3 M INH; +BUMETANIDE1 M1 PO; +PREDNISONE10 M2 PO
--- NOTE | 2017-12-02 12:54 | ED GENERAL ADULT ---
History of Present Illness General Chief Complaint: General Adult Stated Complaint: "TROUBLE BREATHING,KELLEY,BACK PAIN,CHILLS" PER PT Source: patient Exam Limitations: no limitations Allergies Coded Allergies: No Known Allergies (12/02/17) Reconcile Medications Acetaminophen (Tylenol Extra Strength) 500 MG TABLET 2 TAB PO PRN PAIN ( Reported) Albuterol Sulfate (Proair Hfa) 90 MCG HFA.AER.AD 2 PUF INH AD PRN COPD . Albuterol Sulfate 2.5 MG/3 ML (0.083 %) VIAL.NEB 3 ML INH EVERY 4 HRS/AWAKE COPD EXACERBATION Amiodarone (Cordarone) 200 MG TABLET 1 TAB PO DAILY HEART (Reported) Atenolol 25 MG TABLET 1 TAB PO DAILY BP (Reported) Budesonide/Formoterol Fumarate (Symbicort 160-4.5 Mcg Inhaler) 10.2 GM HFA.AER.AD 2 PUF INH BID COPD . Bumetanide 1 MG TABLET 1 TAB PO 7:30 AM, & 4:30 PM LEG SWELLING . Letrozole (Femara) 2.5 MG TABLET 1 TAB PO DAILY CANCER (Reported) Levothyroxine Sodium (Synthroid) 88 MCG TABLET 1 TAB PO DAILY THYROID ( Reported) Rivaroxaban (Xarelto) 20 MG TABLET 1 TAB PO DAILY BLOOD THINNER (Reported) with food Sertraline HCl 25 MG TABLET 1 TAB PO DAILY MENTAL HEALTH (Reported) Tiotropium [place] (Spiriva) 18 MCG CAP.W.DEV 1 CAP INH DAILY COPD . Triage Note: PT TO TRIAGE FOR SOB, STARTING 3 DAYS AGO. STATES SHE HAS HAD A KELLEY FOR 2 DAYS WITHOUT RELEIF FROM MOTRIN TYLENOL. PT IS COUGING WITH CLEAR SPUTUM. PT STATES SHE FELT SHARP PAIN 2 DAYS PRIOR. PT HAS A HX OF BREAST CANCER TO THE LEFT SIDE AND IS RECIEIVNG CHEMO. PT IS ON COUMADIN FOR AFIB. Triage Nurses Notes Reviewed? yes HPI: Ms. Trujillo is 62-year-old female with a history of atrial fibrillation, COPD, CHF, and breast cancer who came to the emergency department complaining of shortness of breath for the past 3 days. Patient notes the shortness of breath primarily on exertion, but did appear at rest. She also complains of fatigue, dry cough, chills, mesogastric abdominal discomfort, nausea, and lower back pain worsening upon movement of the same onset. Patient tried a nebulizer treatment at home which did not help; upon worsening of respiratory symptoms, patient decided to come to the ED. She also tried Tylenol for her lower back pain which did not provide relief. Patient denies palpitations, fever, chest pain, increased sputum purulence, vomiting, diarrhea. (Elliot Joseph MD,Agustin) Vital Signs & Intake/Output Vital Signs & Intake/Output Vital Signs Date Time Temp Pulse Resp B/P B/P Pulse O2 O2 Flow FiO2 Mean Ox Delivery Rate 12/02 1506 20 99 Nasal 2.0L Cannula 12/02 1459 98.2 79 18 127/85 90 Room Air 12/02 1345 Room Air Room Air 12/02 1237 96.2 92 16 98 Room Air Room Air (Mable MÉNDEZ,Drew [place]) Past History Travel History Traveled to [place] past 21 day No Medical History Any Pertinent Medical History? 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 Yes (Agustin Rai MD) Review of Systems Review of Systems Constitutional: Reports: chills. EENTM: Reports: no symptoms. Respiratory: Reports: cough, short of breath, wheezing. Cardiovascular: Reports: peripheral edema. GI: Reports: abdominal pain, nausea. Genitourinary: Reports: no symptoms. Musculoskeletal: Reports: back pain. Skin: Reports: dryness, erythema (In chins), lesions. Neurological/Psychological: Reports: no symptoms. Hematologic/Endocrine: Reports: no symptoms. Immunologic/Allergic: Reports: no symptoms. (Agustin Rai MD) Physical Exam Physical Exam General Appearance: well developed/nourished, alert, awake, anxious, mild distress, obese Head: atraumatic, normal appearance Eyes: Bilateral: normal appearance. Ears, Nose, Throat: normal pharynx Neck: normal inspection, supple, full range of motion Respiratory: chest non-tender, wheezing Cardiovascular: edema Gastrointestinal: normal bowel sounds, soft, non-tender Extremities: pedal edema Neurologic/Psych: no motor/sensory deficits, awake, alert, oriented x 3, normal mood/affect Skin: intact (Lesion on right chin) Core Measures ACS in differential dx? No CVA/TIA Diagnosis: No Sepsis Present: No Sepsis Focused Exam Completed? No (Elliot Joseph MD,Agustin) Progress Differential Diagnoses I considered the following diagnoses in my evaluation of the patient: [COPD Vs Pneumonia] Diagnostic Imaging: Viewed by Me: Radiology Read. Initial ED EKG: AFIB (Elliot Joseph MD,Agustin) Plan of Care: Orders Procedure Date/time Status TROPONIN LEVEL 12/02 1237 Complete PARTIAL THROMBOPLASTIN TIME 12/02 123 Complete PROTHROMBIN TIME 12/02 123 Complete LACTIC ACID 12/02 123 Complete COMPREHENSIVE METABOLIC PANEL 12/02 123 Complete CBC WITHOUT DIFFERENTIAL 12/02 123 Complete EKG 12/02 1237 Active Laboratory Tests 12/02/17 1537: Lactic Acid Cancelled 12/02/17 1300: Anion Gap 6, Estimated GFR > 60, BUN/Creatinine Ratio 17.5, Glucose 113 H, Lactic Acid 1.4, Calcium 9.3, Total Bilirubin 0.5, AST 25, ALT 34, Alkaline Phosphatase 65, Troponin I < 0.01, Total Protein 6.8, Albumin 3.6, Globulin 3.2, Albumin/Globulin Ratio 1.1, PT 14.3 H, INR 1.31 H, APTT 30, CBC w Diff NO MAN DIFF REQ, RBC 5.07, MCV 87.3, MCH 29.0, MCHC 33.3, RDW 16.1 H, MPV 9.3, Gran % 62.2, Lymphocytes % 22.1, Monocytes % 9.0, Eosinophils % 5.8 H, Basophils % 0.9 , Absolute Granulocytes 4.3, Absolute Lymphocytes 1.5, Absolute Monocytes 0.6, Absolute Eosinophils 0.4, Absolute Basophils 0.1 This is a 62-year-old female presented to the emergency department complaining of shortness of breath sitting up COPD, and some issues with medication compliance due to insurance, was concerning for COPD exacerbation versus pneumonia; and this likely the differential PE. EKG showed A. fib, patient does have a history of chronic atrial fibrillation, currently on Coumadin. No chest pain was noted. Chest x-ray did not show any acute pulmonary pathology, and on physical examination did exhibit wheezing bilaterally throughout both pulmonary zurita, and she does refer some cough though nonproductive. She was given Solu- Medrol, DuoNebs, with resolution of SOB and wheezing. The rest of her workup was unremarkable. (Agustin Rai MD) (Mable MÉNDEZ,Drew [place]) Departure Departure Disposition: HOME OR SELF CARE Condition: Stable Clinical Impression Primary Impression: COPD exacerbation Referrals: Mason Grimes MD (PCP/Family) Additional Instructions: Please follow-up with your primary care physician about your recent ER visit. Should symptoms worsen please return to the emergency room. Departure Forms: Customer Survey General Discharge Information Prescriptions: Current Visit Scripts Prednisone 1 TAB PO DAILY #5 TAB Budesonide/Formoterol Fumarate (Symbicort 80-4.5 Mcg Inhaler) 2 PUF INH BID #10.2 GM Ipratropium/Albuterol Sulfate (Combivent Respimat Inhal [place]) 1 INH INH/[place] Q6 #1 INH Acetaminophen (Tylenol Extra Strength) 1 TAB PO Q6-8 PRN Back Pain #30 TAB (Agustin Rai MD) Resident Co-Sign Statement Statement: ED Attending supervision documentation- [xI saw and evaluated the patient. I have also reviewed all the pertinent lab results and diagnostic results. I agree with the findings and the plan of care as documented in the Resident's documentation. [] I have reviewed the ED Record and agree with the Resident's documentation. [] Additions or exceptions (if any) to the Resident's note and plan are summarized below: [] (Mable MÉNDEZ,Drew [place]) Critical Care Note Critical Care Note Critical Care Time: non-applicable (Agustin Rai MD) ED Attending Observation Initial Observation Note: I have seen and personally examined RAE TRUJILLO on 12/02/17 at 1534. I agree with the current emergency department documentation. The disposition (admission or discharge) is uncertain at this time, she needs a period of observation for the following reason(s): The ED Nurse caring for this patient has been personally informed as to what the patient is being observed for. (Elliot Joseph MD,[facility])
[2017-12-02 13:08] LABS: ABSOLUTE BASOPHIL COUNT 0.1 /CUMM (0.0-0.2); ABSOLUTE EOSINOPHIL COUNT 0.4 /CUMM (0.0-0.7); ABSOLUTE GRANULOCYTE CT 4.3 /CUMM (1.4-6.5); ABSOLUTE LYMPH COUNT 1.5 /CUMM (1.2-3.4); ABSOLUTE MONOCYTE COUNT 0.6 /CUMM (0.10-0.60); BASOPHIL % 0.9 % (0.0-2.0); EOSINOPHIL % 5.8 % (0-5); GRANULOCYTE % 62.2 % (42.2-75.2); HEMATOCRIT 44.3 % (37-47); MEAN CORPUSCULAR HGB CONC 33.3 G/DL (33.0-37.0); MEAN CORPUSCULAR VOLUME 87.3 FL (81.0-99.0); MEAN PLATELET VOLUME 9.3 FL (7.4-10.4); PLATELET COUNT 189 /CUMM (130-400); RBC DISTRIBUTION WIDTH 16.1 % (11.5-14.5); RED BLOOD CELL CT 5.07 /CUMM (4.20-5.40)
[2017-12-02 13:19] LABS: PT 14.3 SEC (9.4-12.5); PTT 30 SEC (25-37)
--- NOTE | 2017-12-02 15:18 | RADIOLOGY REPORT ---
EXAMINATION: XR PORTABLE CHEST CLINICAL INFORMATION: Shortness of breath. Personal history of breast carcinoma. COMPARISON: Chest done on 05/31/2017. TECHNIQUE: Portable frontal view of the chest was obtained. FINDINGS: Both lungs are symmetrically expanded, appear clear. The cardiomediastinal silhouette is within normal limits. Mild pulmonary venous congestion is present. No definite evidence of any pleural effusion or pneumothorax. Previously identified right-sided Port-A-Cath is no longer visualized. IMPRESSION: Mild pulmonary venous congestion. Otherwise unremarkable study.
[2017-12-02] MEDS ORDERED: SYMBICORT 80-10.2 GM INH ×2 (16:59→17:09)
[2017-12-02] MEDS ORDERED: TYLENOL EXTRA500 M2 PO (17:09)
[2017-12-02] MEDS ORDERED: PREDNISONE50 M1 PO (17:09)
[2017-12-02] MEDS ORDERED: COMBIVENT RESPIM4 GM INH/SOL (17:09)
[2017-12-02 17:18] VITALS: BP 131/84
== END 2017-12-02 17:25 ==
LOC: ERH 12:23
PROVIDERS: Physician Assistant Medical
DX: J44.1 Chronic obstructive pulmonary disease with (acute) exacerbation (principal); Z79.01 Long term (current) use of anticoagulants; F17.210 Nicotine dependence, cigarettes, uncomplicated
CPT/HCPCS: 1263; 71045; 93005; 93010; 96374; J2930

== ENCOUNTER 2017-12-07 01:19 | Emergency (ER) | payer OTHER ==
[~2017-12-07] VITALS: Ht 172.7 cm; Wt 181.4 kg
[~2017-12-07 01:19] MED LIST changes: +COMBIVENT RESPIM4 GM INH/SOL; +SYMBICORT 80-10.2 GM INH
--- NOTE | 2017-12-07 02:00 | ED GENERAL ADULT ---
History of Present Illness General Chief Complaint: General Adult Stated Complaint: PT C/O " I'M WEAK, DIZZY, EVERYTHING WRONG" Source: patient Exam Limitations: no limitations Vital Signs & Intake/Output Vital Signs & Intake/Output Vital Signs Date Time Temp Pulse Resp B/P B/P Pulse O2 O2 Flow FiO2 Mean Ox Delivery Rate 12/078 98.0 78 20 126/64 99 Room Air 12/07 0147 98.2 82 20 132/78 98 Room Air Allergies Coded Allergies: No Known Allergies (12/02/17) Reconcile Medications Acetaminophen (Tylenol Extra Strength) 500 MG TABLET 2 TAB PO PRN PAIN ( Reported) Acetaminophen (Tylenol Extra Strength) 500 MG TABLET 1 TAB PO Q6-8 PRN Back Pain Albuterol Sulfate (Proair Hfa) 90 MCG HFA.AER.AD 2 PUF INH AD PRN COPD . Albuterol Sulfate 2.5 MG/3 ML (0.083 %) VIAL.NEB 3 ML INH EVERY 4 HRS/AWAKE COPD EXACERBATION Amiodarone (Cordarone) 200 MG TABLET 1 TAB PO DAILY HEART (Reported) Amoxicillin/Potassium Clav (Augmentin 875-125 Tablet) 875 MG-125 MG TABLET 1 TAB PO BID BRONCHITIS Atenolol 25 MG TABLET 1 TAB PO DAILY BP (Reported) Budesonide/Formoterol Fumarate (Symbicort 80-4.5 Mcg Inhaler) 80 MCG-4.5 MCG/ ACTUATION HFA.AER.AD 2 PUF INH BID COPD (Reported) Budesonide/Formoterol Fumarate (Symbicort 160-4.5 Mcg Inhaler) 10.2 GM HFA.AER.AD 2 PUF INH BID COPD . Budesonide/Formoterol Fumarate (Symbicort 80-4.5 Mcg Inhaler) 80 MCG-4.5 MCG/ ACTUATION HFA.AER.AD 2 PUF INH BID COPD Bumetanide 1 MG TABLET 1 TAB PO 7:30 AM, & 4:30 PM LEG SWELLING . Ipratropium/Albuterol Sulfate (Combivent Respimat Inhal [place]) 20 MCG-100 MCG/ ACTUATION MIST.INHAL 1 INH INH/[place]ALE[place] Q6 COPDE Letrozole (Femara) 2.5 MG TABLET 1 TAB PO DAILY CANCER (Reported) Levothyroxine Sodium (Synthroid) 88 MCG TABLET 1 TAB PO DAILY THYROID ( Reported) Prednisone 50 MG TABLET 1 TAB PO DAILY copd Rivaroxaban (Xarelto) 20 MG TABLET 1 TAB PO DAILY BLOOD THINNER (Reported) with food Sertraline HCl 25 MG TABLET 1 TAB PO DAILY MENTAL HEALTH (Reported) Tiotropium [place] (Spiriva) 18 MCG CAP.W.DEV 1 CAP INH DAILY COPD . Triage Note: TRIAGE: PATIENT TO ER FROM HOME REPORTING X 2 WEEKS WHEN AT PCP DX W/ VIRUS, SEEN HERE WEDNESDAY FOR SAME SX AND DX W/ VIRUS AND COPD EXACERBATION, TAKING PREDNISONE DIRECTED. PATIENT HERE TONIGHT W/ CONTINUED DIFFICULTY BREATHING AND WEAKNESS W/ INTERMITTENT NAUSEA. -V/D. Triage Nurses Notes Reviewed? yes Onset: Gradual Duration: day(s): Timing: recent history Injury Environment: home Severity: mild Modifying Factors: Improves With: rest. Associated Symptoms: cough HPI: 62 yo woman h/o copd, afib on xarelto was seen 5 days ago, placed on prednisone for asthma/copd. She shares that she didn't take her prednisone today, "because I didn't feel well." She notes that her cough has improved, but that she continues to have a dry cough, wtihout significant sputum. She also feels dizzy, light headed, with a dry tongue and lips, without fever, chills. She notes mild nausea, without vomiting, diarrhea, or abdominal pain. She is otherwise well, without chest pain, syncopal symptoms, vertigo type symptoms. Past History Travel History Traveled to [place] past 21 day No Medical History Any Pertinent Medical History? 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 No Review of Systems Review of Systems Constitutional: Reports: no symptoms. EENTM: Reports: no symptoms. Respiratory: Reports: no symptoms. Cardiovascular: Reports: no symptoms. GI: Reports: no symptoms. Genitourinary: Reports: no symptoms. Musculoskeletal: Reports: no symptoms. Skin: Reports: no symptoms. Neurological/Psychological: Reports: no symptoms. Hematologic/Endocrine: Reports: no symptoms. Immunologic/Allergic: Reports: no symptoms. All Other Systems: Reviewed and Negative Physical Exam Physical Exam General Appearance: well developed/nourished, no apparent distress Head: atraumatic, normal appearance Eyes: Bilateral: normal appearance. Ears, Nose, Throat: normal pharynx, dry mucosa Neck: normal inspection, supple, full range of motion Respiratory: minimal wheeze, parasternal chest wall tenderness. Cardiovascular: regular rate/rhythm Gastrointestinal: normal bowel sounds, soft, non-tender, no organomegaly, obese Back: normal inspection, normal range of motion, muscle spasm, no vertebral tenderness Extremities: normal inspection, normal capillary refill, normal range of motion, no edema Neurologic/Psych: no motor/sensory deficits, awake, alert, oriented x 3, negative modified michael-hallpike maneuver. Reflexes: 1+: bicep (R), bicep (L), knee (R), knee (L). Skin: intact, normal color, warm/dry Core Measures ACS in differential dx? No CVA/TIA Diagnosis: No Sepsis Present: No Sepsis Focused Exam Completed? No Progress Differential Diagnoses I considered the following diagnoses in my evaluation of the patient: prednisone side effect copd viral syndrome vs other. Plan of Care: Orders Procedure Date/time Status EKG 12/07 0409 Active TROPONIN LEVEL 12/07 129 Complete LIPASE 12/07 129 Complete HEPATIC FUNCTION PANEL 12/07 129 Complete CBC WITHOUT DIFFERENTIAL 12/07 129 Complete BASIC METABOLIC PANEL 12/07 129 Complete AMYLASE 12/07 129 Complete EKG 12/07 129 Active Current Medications Sig/Eduardo Start time Last Medication Dose Stop Time Status Admin Sodium Chloride 1,000 ML BOLUS ONE 12/07 020 CAN (Normal Saline 0.9%) 12/07 0259 Laboratory Tests 12/07/17 0200: Anion Gap 6, Estimated GFR > 60, BUN/Creatinine Ratio 24.4, Glucose 97, Calcium 9.0, Total Bilirubin 0.6, Direct Bilirubin 0.3, AST 20, ALT 28, Alkaline Phosphatase 59, Troponin I < 0.01, Total Protein 7.2, Albumin 3.8, Amylase 34, Lipase 75, CBC w Diff NO MAN DIFF REQ, RBC 5.26, MCV 87.0, MCH 28.7, MCHC 33.0, RDW 16.7 H, MPV 9.6, Gran % 65.4, Lymphocytes % 23.9, Monocytes % 8.2, Eosinophils % 1.8, Basophils % 0.7, Absolute Granulocytes 5.5, Absolute Lymphocytes 2.0, Absolute Monocytes 0.7 H, Absolute Eosinophils 0.1, Absolute Basophils 0.1 Diagnostic Imaging: Viewed by Me: Radiology Read. Discussed w/RAD: Radiology Read. CXR Impression: PATIENT: RAE AGUERO PRESENT AGE : 62 PATIENT ACCOUNT NO: [id number] : 55 LOCATION: [facility] ORDERING PHYSICIAN: Dom Adamson MD SERVICE DATE: 12/07/17 EXAM TYPE: RAD - XRY-CHEST XRAY, TWO VIEWS EXAMINATION: XR CHEST CLINICAL INFORMATION: Dyspnea COMPARISON: 12/02/2017 TECHNIQUE: 2 views of the chest were obtained. FINDINGS: The lungs are well expanded. There is no focal consolidation, edema, or effusion. Mild bronchial wall thickening. No pneumothorax. The cardiomediastinal silhouette is within normal limits. No acute osseous abnormality. Degenerative changes of the spine. IMPRESSION: No consolidation. Bronchial wall thickening can be seen with a small airways process such as asthma or atypical/viral infection. DICTATED BY: Greyson Elmore MD DATE/TIME DICTATED:12/07/17228 [employer] SET UP OPERATOR:DEYSI DATE/TIME TRANSCRIBED:228 CONFIDENTIAL, DO NOT COPY WITHOUT APPROPRIATE AUTHORIZATION. < Electronically signed in Other Vendor System> SIGNED BY: Greyson Elmore MD 12/07/17 0232 Initial ED EKG: afib, no acute changes. Repeat EKG: unchanged Departure Departure Disposition: HOME OR SELF CARE Condition: Stable Clinical Impression Primary Impression: Dizziness Secondary Impressions: Bronchospasm Referrals: Grimes Mason MÉNDEZ (PCP/Family) Departure Forms: Customer Survey General Discharge Information Prescriptions: Current Visit Scripts Amoxicillin/Potassium Clav (Augmentin 875-125 Tablet) 1 TAB PO BID #20 TAB Comments 12/07/17, 3:57am... pt resting comfortably in the ED, labs benign... will treat her copd with augmentin. I also instructed her to cut her prednisone in half for 3 more doses.... her symptoms may, in part, be due to steroids. I advised close follow up. Critical Care Note Critical Care Note Critical Care Time: non-applicable
[2017-12-07 02:09] LABS: ABSOLUTE BASOPHIL COUNT 0.1 /CUMM (0.0-0.2); ABSOLUTE EOSINOPHIL COUNT 0.1 /CUMM (0.0-0.7); ABSOLUTE GRANULOCYTE CT 5.5 /CUMM (1.4-6.5); ABSOLUTE MONOCYTE COUNT 0.7 /CUMM (0.10-0.60); BASOPHIL % 0.7 % (0.0-2.0); EOSINOPHIL % 1.8 % (0-5); GRANULOCYTE % 65.4 % (42.2-75.2); HEMATOCRIT 45.8 % (37-47); MEAN CORPUSCULAR HGB 28.7 PG (27.0-31.0); MEAN PLATELET VOLUME 9.6 FL (7.4-10.4); PLATELET COUNT 217 /CUMM (130-400); RBC DISTRIBUTION WIDTH 16.7 % (11.5-14.5); RED BLOOD CELL CT 5.26 /CUMM (4.20-5.40); WHITE BLOOD CELL COUNT 8.4 /CUMM (4.8-10.8)
--- NOTE | 2017-12-07 02:32 | RADIOLOGY REPORT ---
EXAMINATION: XR CHEST CLINICAL INFORMATION: Dyspnea COMPARISON: 12/02/2017 TECHNIQUE: 2 views of the chest were obtained. FINDINGS: The lungs are well expanded. There is no focal consolidation, edema, or effusion. Mild bronchial wall thickening. No pneumothorax. The cardiomediastinal silhouette is within normal limits. No acute osseous abnormality. Degenerative changes of the spine. IMPRESSION: No consolidation. Bronchial wall thickening can be seen with a small airways process such as asthma or atypical/viral infection.
[2017-12-07] MEDS ORDERED: AUGMENTIN 875-1 EACH PO (03:57)
[2017-12-07 04:48] VITALS: BP 126/64
== END 2017-12-07 04:51 ==
LOC: ERH 01:19
PROVIDERS: Pediatrics
DX: J98.01 Acute bronchospasm (principal); R42 Dizziness and giddiness
CPT/HCPCS: 1263; 71046; 93005; 93010; J3101; J3490